=== PATIENT | female | born 1970 | race Caucasian/White ===

== ENCOUNTER 2019-12-05 15:25 | Inpatient (IN) | payer OTHER ==
[~2019-12-05] VITALS: Ht 175.3 cm; Wt 63.4 kg
[2019-12-05 15:50] VITALS: BP 115/70
[2019-12-05] MEDS: IV NORMAL SALINE 1000ML BAG 1,000 ML IV SCH ×2 (17:13→21:47)
[2019-12-05] MEDS: fentaNYL PF VIAL 100 MCG/2 ML VIAL IVP PRN ×3 (17:13→23:45)
[2019-12-05 17:33] LABS: BILIRUBIN,URINE NEGATIVE (NEG); CLARITY,URINE CLEAR; NITRITE,URINE POSITIVE (NEG); PROTEIN,URINE NEGATIVE (NEG-TRACE); UROBILINOGEN,URINE 0.2 mg/dL (0.2 mg/dL)
[2019-12-05 17:41] LABS: BACTERIA,URINE MANY /HPF (0-FEW); COLOR,URINE DK YELLOW; SQUAMOUS EPITHELIAL CELL,UR MANY /LPF
[2019-12-05 17:42] LABS: RBC,URINE RARE /HPF (0-2)
[2019-12-05 17:48] LABS: BASO # 0.1 x10^3/uL (0.0-0.2); BASO % 1 % (0-3); EOS # 0.2 x10^3/uL (0.0-0.7); EOS % 3 % (0-3); HEMATOCRIT 37.2 % (36.0-47.0); HEMOGLOBIN 12.4 g/dL (12.0-15.5); LYMPH # 2.6 x10^3/uL (1.0-4.8); LYMPH % 39 % (24-48); MEAN CORPUSCULAR HEMOGLOBIN 28 pg (25-35); MEAN CORPUSCULAR HGB CONC 33 g/dL (31-37); MEAN CORPUSCULAR VOLUME 83 fL (79-100); MONO # 0.4 x10^3/uL (0.0-1.1); MONO % 6 % (0-9); NEUT # 3.4 x10^3/uL (1.8-7.7); NEUT % 52 % (31-73); PLATELET COUNT 371 x10^3/uL (140-400); RED BLOOD COUNT 4.46 x10^6/uL (3.50-5.40); RED CELL DISTRIBUTION WIDTH 14.9 % (11.5-14.5); WHITE BLOOD COUNT 6.5 x10^3/uL (4.0-11.0)
[2019-12-05 18:05] LABS: CREATININE 0.9 mg/dL (0.6-1.0); GFR 67.1
[2019-12-05 18:10] LABS: ALBUMIN 3.5 g/dL (3.4-5.0); ALBUMIN/GLOBULIN RATIO 0.9 (1.0-1.7); TOTAL BILIRUBIN 0.2 mg/dL (0.2-1.0); TOTAL PROTEIN 7.2 g/dL (6.4-8.2)
[2019-12-05 19:00] VITALS: BP 87/56
[2019-12-05] MEDS ORDERED: OXYM30SP25 NS (19:39)
[2019-12-05] MEDS ORDERED: FLUO20CA16 PO (19:39)
[2019-12-05] MEDS ORDERED: MORP-16 PO (19:39)
[2019-12-05] MEDS ORDERED: ALPR0.5T PO (19:39)
[2019-12-05] MEDS ORDERED: PUMP300C PO (19:39)
[2019-12-05] MEDS ORDERED: PANT40TA77 PO (19:39)
[2019-12-05] MEDS ORDERED: CIPR500T94 PO (19:39)
[2019-12-05] MEDS ORDERED: LEVO50TA5 PO (19:39)
[2019-12-05] MEDS ORDERED: ALPRAZolam 0.5 MG TABLET PO PRN (19:45)
[2019-12-05] MEDS ORDERED: ONDA4TAB12 PO (19:55)
--- NOTE | 2019-12-05 21:03 | HP ---
ADMIT DATE: 12/05/2019 CHIEF COMPLAINT AND HISTORY OF PRESENT ILLNESS: This 49-year-old white female is well known to me in followup in the office. I saw the patient earlier in the week, mainly Tuesday, with right flank pain. She was having also some cystitis symptoms with feeling now up to go off in some discomfort. Urine showed predominantly blood and no convincing evidence of infection suggesting a distal ureteral stone. She was treated with pain medicine, encouraged hydration and straining for stone. She was unable to eat or drink, was vomiting, becoming progressively weaker, unable to get up and go. By the day of admission, it was elected to admit her for hydration as well as pain control for the presumed kidney stone and work this up further. PAST MEDICAL HISTORY: Remarkable for Chiari 1 malformation for which she has headaches. She has had a prior hernia repair. MEDICATIONS: Brought with the patient, listed on the computer and have been addressed. ALLERGIES: SHE IS ALLERGIC TO PENICILLIN. SOCIAL HISTORY: She is nonsmoker, nondrinker, does not abuse drugs. FAMILY HISTORY: Noncontributory. REVIEW OF SYSTEMS: As mentioned above. PHYSICAL EXAMINATION: GENERAL: She is a well-developed, well-nourished white female who appears uncomfortable. VITAL SIGNS: Stable. She is afebrile. HEAD, EYES, EARS, NOSE AND THROAT: Unremarkable. NECK: Supple without adenopathy or thyromegaly. CHEST: Clear to auscultation and percussion. HEART: Regular rate and rhythm without S3, S4 or murmur. ABDOMEN: Soft, nontender, without hepatosplenomegaly or masses. She has exquisite right CVA tenderness. EXTREMITIES: Without cyanosis, clubbing or edema. NEUROLOGIC: She is intact. IMPRESSION: Right flank pain with stone, bleeding, both differential with pyelonephritis also possible. PLAN: Pain control, hydration, CT abdomen and pelvis, stone protocol with plans to follow. LAYO TUCKER MD DR: MARY/nida JOB#: [id number] / [id number]
[2019-12-05] MEDS: MORPHINE ER 30 MG TABLET.ER PO SCH (21:46)
[2019-12-05 23:00] VITALS: BP 89/45
[2019-12-06 03:00] VITALS: BP 111/62
[2019-12-06] MEDS: fentaNYL PF VIAL 100 MCG/2 ML VIAL IVP PRN ×9 (04:24→22:03)
[2019-12-06 07:00] VITALS: BP 99/58
[2019-12-06] MEDS: MORPHINE ER 30 MG TABLET.ER PO SCH ×2 (08:34→22:02)
[2019-12-06] MEDS: FLUoxetine HCL 20 MG CAPSULE PO SCH (08:38)
[2019-12-06] MEDS: PANTOPRAZOLE 40 MG TABLET.DR. PO SCH (08:38)
[2019-12-06] MEDS: LEVOTHYROXINE 50 MCG TABLET PO SCH (08:38)
[2019-12-06] MEDS: IV NORMAL SALINE 1000ML BAG 1,000 ML IV SCH (08:39)
[2019-12-06] MEDS: OXYMETAZOLINE 0.05% NASAL SPRAY 30ML BOTTLE. NS SCH (08:39)
--- NOTE | 2019-12-06 08:46 | PDOC ---
DATE OF SERVICE: DATE: 12/06/19 TIME: 08:44 GENERAL General: vss and afebrile. still miserable with ongoing right flank tenderness. K+ 3.0 and replacement ordered. will add rocephin for nitrite positive urine pending culture. ct abdomen and pelvis for stone this am. VITAL SIGNS/I&O Vital Signs/I&O: Vital Signs Date Time Temp Pulse Resp B/P (MAP) Pulse Ox O2 Delivery O2 Flow Rate FiO2 12/06/19 08:34 Room Air 12/06/19 07:00 97.9 59 18 99/58 (72) 100 97.9 I & O 12/05/19 12/05/19 12/06/19 15:00 23:00 07:00 Intake Total 900 ml 200 ml Balance 900 ml 200 ml ALLERGIES Allergies: Allergies Coded Allergies Type Severity Reaction Last Updated Verified Penicillins Allergy Intermediate 12/06/19 Yes metoclopramide Allergy Intermediate 12/06/19 Yes prochlorperazine Allergy Intermediate 12/06/19 Yes MEDS Medications: Current Medications Medications (Trade) Dose Ordered Sig/Bakari Route PRN Reason Start Time Stop Time Status Last Admin Dose Admin Sodium Chloride 1,000 ml @ 125 mls/hr Q8H IV 12/05/19 16:30 12/06/19 08:39 Fentanyl Citrate (Fentanyl 2ml Vial) 25 mcg PRN Q2HR PRN IVP PAIN 12/05/19 16:30 12/06/19 08:34 Fluoxetine HCl (PROzac) 20 mg DAILYWBKFT PO 12/06/19 08:00 12/06/19 08:38 Levothyroxine Sodium (Synthroid) 50 mcg DAILY06 PO 12/06/19 09:00 12/06/19 08:38 Morphine Sulfate (Ms Contin) 30 mg BID PO 12/05/19 21:00 12/06/19 08:34 Oxymetazoline HCl (Afrin) 1 spray DAILY NS 12/06/19 09:00 12/06/19 08:39 Pantoprazole Sodium (Protonix) 40 mg DAILYAC PO 12/06/19 07:30 12/06/19 08:38 LAB Lab: Laboratory Tests Test 12/05/19 17:20 12/05/19 17:30 Urine Collection Type Unknown Urine Color Dk yellow Urine Clarity Clear Urine pH 6.0 (<5.0-8.0) Urine Specific [place] 1.010 (1.000-1.030) Urine Protein Negative mg/dL (NEG-TRACE) Urine Glucose (UA) Negative mg/dL (NEG) Urine Ketones (Stick) Negative mg/dL (NEG) Urine Blood Negative (NEG) Urine Nitrite Positive (NEG) Urine Bilirubin Negative (NEG) Urine Urobilinogen Dipstick 0.2 mg/dL (0.2 mg/dL) Urine Leukocyte Esterase Small (NEG) Urine RBC Rare /HPF (0-2) Urine WBC 11-20 /HPF (0-4) Urine Squamous Epithelial Cells Many /LPF Urine Bacteria Many /HPF (0-FEW) Urine Mucus Slight /LPF White Blood Count 6.5 x10^3/uL (4.0-11.0) Red Blood Count 4.46 x10^6/uL (3.50-5.40) Hemoglobin 12.4 g/dL (12.0-15.5) Hematocrit 37.2 % (36.0-47.0) Mean Corpuscular Volume 83 fL (79-100) Mean Corpuscular Hemoglobin 28 pg (25-35) Mean Corpuscular Hemoglobin Concent 33 g/dL (31-37) Red Cell Distribution Width 14.9 % (11.5-14.5) H Platelet Count 371 x10^3/uL (140-400) Neutrophils (%) (Auto) 52 % (31-73) Lymphocytes (%) (Auto) 39 % (24-48) Monocytes (%) (Auto) 6 % (0-9) Eosinophils (%) (Auto) 3 % (0-3) Basophils (%) (Auto) 1 % (0-3) Neutrophils # (Auto) 3.4 x10^3/uL (1.8-7.7) Lymphocytes # (Auto) 2.6 x10^3/uL (1.0-4.8) Monocytes # (Auto) 0.4 x10^3/uL (0.0-1.1) Eosinophils # (Auto) 0.2 x10^3/uL (0.0-0.7) Basophils # (Auto) 0.1 x10^3/uL (0.0-0.2) Sodium Level 138 mmol/L (136-145) Potassium Level 3.0 mmol/L (3.5-5.1) L Chloride Level 100 mmol/L (98-107) Carbon Dioxide Level 33 mmol/L (21-32) H Anion Gap 5 (6-14) L Blood Urea Nitrogen 11 mg/dL (7-20) Creatinine 0.9 mg/dL (0.6-1.0) Estimated GFR (Cockcroft-Gault) 67.1 BUN/Creatinine Ratio 12 (6-20) Glucose Level 78 mg/dL (70-99) Calcium Level 9.0 mg/dL (8.5-10.1) Total Bilirubin 0.2 mg/dL (0.2-1.0) Aspartate Amino Transferase (AST) 12 U/L (15-37) L Alanine Aminotransferase (ALT) 16 U/L (14-59) Alkaline Phosphatase 70 U/L (46-116) Total Protein 7.2 g/dL (6.4-8.2) Albumin 3.5 g/dL (3.4-5.0) Albumin/Globulin Ratio 0.9 (1.0-1.7) L Laboratory Tests 12/05/19 17:30 Laboratory Tests 12/05/19 17:30 LAYO TUCKER MD Dec 06, 2019 08:46
--- NOTE | 2019-12-06 08:57 | RAD ---
EXAM: Abdomen and pelvis CT without intravenous contrast. HISTORY: Nephrolithiasis. TECHNIQUE: Computed tomographic images of the abdomen and pelvis were obtained without contrast. Multiplanar reformatting was performed. *One or more of the following individualized dose reduction techniques were utilized for this examination: 1. Automated exposure control. 2. Adjustment of the mA and/or kV according to patient size. 3. Use of iterative reconstruction technique. COMPARISON: None. FINDINGS: Evaluation of the lower thorax demonstrates no infiltrate or pleural effusion. There are implanted breast prostheses. No hepatic lesion is seen. The gallbladder is contracted. The postprandial status the patient. The stomach is distended with recently ingested bolus. The pancreas is unremarkable. The spleen is upper normal in size. The ureteral glands are unremarkable. There is no evidence of nephroureterolithiasis or hydronephrosis. No solid or cystic renal lesion is seen on this noncontrast exam. There is no appendicitis. There is moderate colonic stool. There is no evidence of bowel obstruction. The urinary bladder is unremarkable. The uterus and adnexal regions are unremarkable on this noncontrast exam. There is a small amount of pelvic free fluid, within physiologic limits for a premenopausal female. There is no lymphadenopathy. There is no suspicious osseous lesion. There is degenerative change predominantly at the lumbosacral junction. IMPRESSION: No acute abdominal or pelvic finding. Electronically signed by: Sophia Palma MD (12/06/2019 8:54 AM) [facility]
--- NOTE | 2019-12-06 10:25 | NUR ---
SW following. Discussed with RN, pt from home, room air, regular diet. IV Rocephin. RN advised no SW needs at this time. SW will continue to follow for discharge planning needs.
[2019-12-06] MEDS: cefTRIAXone IV Push 1 GM VIAL. IVP SCH (10:36)
[2019-12-06] MEDS: POTASSIUM CL 40MEQ IN 0.9%NACL 1,000 ML IV SCH ×2 (10:38→19:38)
[2019-12-06 11:10] VITALS: BP 100/69
[2019-12-06] MEDS: ONDANSETRON ODT 4 MG TAB.RAPDIS. PO PRN (13:05)
[2019-12-06 15:01] VITALS: BP 94/54
[2019-12-06 19:00] VITALS: BP 88/45
[2019-12-06 23:02] VITALS: BP 100/39
[2019-12-07] MEDS: fentaNYL PF VIAL 100 MCG/2 ML VIAL IVP PRN ×10 (00:05→23:01)
[2019-12-07] MEDS: POTASSIUM CL 40MEQ IN 0.9%NACL 1,000 ML IV SCH ×3 (03:18→21:31)
[2019-12-07 03:24] VITALS: BP 96/46
[2019-12-07] MEDS: LEVOTHYROXINE 50 MCG TABLET PO SCH (05:10)
[2019-12-07 05:30] LABS: CALCIUM 8.1 mg/dL (8.5-10.1); CREATININE 0.9 mg/dL (0.6-1.0); GFR 67.1
[2019-12-07 07:00] VITALS: BP 145/52
[2019-12-07] MEDS: PANTOPRAZOLE 40 MG TABLET.DR. PO SCH (07:19)
[2019-12-07] MEDS: MORPHINE ER 30 MG TABLET.ER PO SCH ×2 (07:19→20:47)
[2019-12-07] MEDS: FLUoxetine HCL 20 MG CAPSULE PO SCH (07:20)
[2019-12-07] MEDS: OXYMETAZOLINE 0.05% NASAL SPRAY 30ML BOTTLE. NS SCH (09:00)
[2019-12-07] MEDS: diphenhydrAMINE 50 MG/ML VIAL IVP PRN (09:41)
[2019-12-07] MEDS: cefTRIAXone IV Push 1 GM VIAL. IVP SCH (09:42)
--- NOTE | 2019-12-07 10:16 | NUR ---
SW following. Discussed with RN, pt has new consults today. RN advised no SW needs at this time, SW will continue to follow.
[2019-12-07 11:00] VITALS: BP 107/63
--- NOTE | 2019-12-07 11:06 | PDOC ---
Infectious Disease Note Vital Sign Vital Signs Vital Signs Date Time Temp Pulse Resp B/P (MAP) Pulse Ox O2 Delivery O2 Flow Rate FiO2 12/07/19 09:41 20 95 Room Air 12/07/19 07:00 97.9 73 145/52 (83) 97.9 Labs Lab Laboratory Tests Test 12/07/19 04:10 Sodium Level 140 mmol/L (136-145) Potassium Level 4.0 mmol/L (3.5-5.1) Chloride Level 107 mmol/L (98-107) Carbon Dioxide Level 28 mmol/L (21-32) Anion Gap 5 (6-14) Blood Urea Nitrogen 10 mg/dL (7-20) Creatinine 0.9 mg/dL (0.6-1.0) Estimated GFR (Cockcroft-Gault) 67.1 Glucose Level 93 mg/dL (70-99) Calcium Level 8.1 mg/dL (8.5-10.1) Objective Assessment pt seen, consult dictated Plan Plan of Care / LUIS VAZQUEZ MD Dec 07, 2019 11:06
--- NOTE | 2019-12-07 11:41 | CONS ---
DATE OF CONSULTATION: 12/07/2019 REQUESTING PHYSICIAN: Humberto Foss MD REASON FOR CONSULTATION: UTI. HISTORY OF PRESENT ILLNESS: This is a 49-year-old female with a history of recurrent UTI, probably four times this year. She says the last two have been 6 weeks ago, one and last actually Tuesday, she started having some urinary burning and frequency. She called Dr. Foss's office and was put on Cipro. She did have some nausea, may be vomited once or so, then she started having right flank pain, hence she was seen and was admitted. The Cipro that she had taken it did not help much she says. The patient was put on Rocephin and she is feeling better with the flank pain, but she still has some abdominal discomfort and urinary burning. She has had bladder prolapse years ago when she had a bladder tuck surgery done, but it appears to be that it now has been come back. She has had some chills, no fever. Denies any headache, visual symptoms, chest pain, or diarrhea. PAST MEDICAL HISTORY: Positive for recurrent UTI, bladder prolapse in the past, which has been repaired and four UTIs this year. She has had hernia repair done in the past. SOCIAL HISTORY: Negative for smoking, alcohol, or illicit drug use. ALLERGIES: LISTED ALLERGIC TO PENICILLIN, CAUSES HIVES. REVIEW OF SYSTEMS: As per HPI, all other systems reviewed are negative. CURRENT MEDICATIONS: Reviewed. PHYSICAL EXAMINATION: GENERAL: Alert, oriented female, not in distress. VITAL SIGNS: Stable, afebrile. HEENT: NAD. NECK: Supple, no JVP, no lymphadenopathy. LUNGS: Clear. HEART: S1, S2 regular. ABDOMEN: Benign. EXTREMITIES: No edema, cyanosis. SKIN: Unremarkable. There is no CVA tenderness. LABORATORY DATA: White count is normal. BUN and creatinine is normal. Urinalysis showed 11-20 wbc's. Urine culture is pending. I checked with the lab. CT of the abdomen and pelvis was negative for any kidney stones or pyelonephritis. IMPRESSION: 1. Urinary tract infection. 2. Bladder prolapse. 3. May have a yeast infection, also possible since she had four urinary tract infections and recurrent antibiotics. She has had that before also. RECOMMENDATIONS: Would continue Rocephin, add Diflucan and Pyridium. The patient does need a Urology. Unfortunately, we do not have one. I do not know whether MOTOR ELECT[employer]ICIAN might be able to help. Thank you very much, Dr. Foss, for giving me the opportunity to participate in this patient's care. LUIS VAZQUEZ MD DR: MELL/nida JOB#: [id number] / [id number]
[2019-12-07] MEDS: FLUCONAZOLE 100 MG TABLET. PO SCH (12:51)
[2019-12-07] MEDS: PHENAZOPYRIDINE 200 MG TABLET. PO PRN (12:59)
[2019-12-07] MEDS: LACTOBACILLUS RHAMNOSUS GG 1 CAPSULE. PO SCH ×2 (12:59→20:46)
[2019-12-07] MEDS: ONDANSETRON ODT 4 MG TAB.RAPDIS. PO PRN (12:59)
--- NOTE | 2019-12-07 13:42 | PDOC2 ---
CONSULT Date of Consult Date of Consult DATE: 12/07/19 TIME: 13:40 Reason for Consult Reason for Consult: Prolapse History of Present Illness Reason for Visit: 49y admitted for right flanks pain and cystitis. The pt was worked up for pyelonephritis vs nephrolithiasis. The pt states that the pain began over a wk ago. The pt states that first notice her bladder prolapse after her delivery about 5yrs ago. She had a complicated surgery where she pushed ~4hrs and also had a shoulder dystocia. She states that she was underwent a repair of her prolapse. Discussed the sites of pelvic organ prolapse (anterior, posterior, and apical compartment). She believes at that time it was anterior and states that her bladder was tacked up. Recently she feels that the prolapse has returned. At times when she voids she feels a lot of pressure and has to valsva to relieve the pressure. She feels like the prolapse is again in the anterior compartment. She wonders if the prolapse could be contributing to her current symptoms. Explained that it is not likely and typically the prolapse would have to be a procidentia (compartments through the vaginal introitus) for a pt to develop flank pain (secondary to ureteral obstruction. Potentially the prolapse may "kink" the urethra, thereby resulting in symptoms of obstructed voiding, such as a slow urine stream, the need to change position or manually reduce the prolapse to urinate, a sensation of incomplete emptying and, in rare cases, complete urinary retention. Also pt may develop stress incontinence or overactive bladder symptoms. Based on her current symptoms, the pt was told that it was not likely that prolapse is the cause. PMH: Hypothyroidism, Chiari 1 malformation PSH: Hernia repair, breast, D&C x 2 OBHx: recurrent loss (2/2 to AMA), TSVD x 1 [employer] Examiner: LMP ~2wks ago Not contraception, h/o Norplant and OCPs 17yo / regular SH: no tob, no EtOH FH: CAD Current Medications Current Medications Current Medications Sodium Chloride 1,000 ml @ 125 mls/hr Q8H IV Last administered on 12/06/19at 08:39; Start 12/05/19 at 16:30; Stop 12/06/19 at 09:04; Status DC Fentanyl Citrate (Fentanyl 2ml Vial) 25 mcg PRN Q2HR PRN IVP PAIN Last administered on 12/06/19 17:26; Start 12/05/19 at 16:30; Stop 12/06/19 at 19:19; Status DC Alprazolam (Xanax) 0.5 mg PRN DAILY PRN PO ANXIETY / AGITATION; Start 12/05/19 at 19:45 Fluoxetine HCl (PROzac) 20 mg DAILYWBKFT PO Last administered on 12/07/19 07:20; Start 12/06/19 at 08:00 Levothyroxine Sodium (Synthroid) 50 mcg DAILY06 PO Last administered on 12/07/19 05:10; Start 12/06/19 at 09:00 Morphine Sulfate (Ms Contin) 30 mg BID PO Last administered on 12/07/19 07:19; Start 12/05/19 at 21:00 Oxymetazoline HCl (Afrin) 1 spray DAILY NS Last administered on 12/06/19 08:39; Start 12/06/19 at 09:00 Pantoprazole Sodium (Protonix) 40 mg DAILYAC PO Last administered on 12/07/19 07:19; Start 12/06/19 at 07:30 Ondansetron HCl (Zofran Odt) 4 mg PRN Q6HRS PRN PO NAUSEA/VOMITING Last administered on 12/07/19 12:59; Start 12/05/19 at 20:00 Ceftriaxone Sodium (Rocephin) 1 gm Q24H IVP Last administered on 12/07/19 09:42; Start 12/06/19 at 10:00 Potassium Chloride/Sodium Chloride 1,000 ml @ 125 mls/hr Q8H IV Last administered on 12/07/19at 07:25; Start 12/06/19 at 10:00 Fentanyl Citrate (Fentanyl 2ml Vial) 50 mcg PRN Q2HR PRN IVP MODERATE TO SEVERE PAIN Last administered on 12/07/19 12:52; Start 12/06/19 at 19:30 Diphenhydramine HCl (Benadryl) 50 mg PRN Q6HRS PRN IVP ITCHING Last administered on 12/07/19 09:41; Start 12/06/19 at 19:30 Fluconazole (Diflucan) 200 mg DAILY PO Last administered on 12/07/19at 12:51; Start 12/07/19 at 12:00 Phenazopyridine HCl (Pyridium) 200 mg PRN TID PRN PO URINARY PAIN Last administered on 12/07/19at 12:59; Start 12/07/19 at 11:15 Lactobacillus Rhamnosus (Culturelle) 1 cap BID PO Last administered on 12/07/19at 12:59; Start 12/07/19 at 13:00 Active Scripts Active Reported Ondansetron Odt (Ondansetron) 4 Mg Tab.rapdis 1 Tab PO PRN Q6-8HRS Pantoprazole Sodium (Pantoprazole Sodium) 40 Mg Tablet.dr 40 Mg PO DAILYAC Afrin (Oxymetazoline Hcl) 30 Ml [place] 30 Ml NS DAILY Cipro (Ciprofloxacin Hcl) 500 Mg Tablet 1 Tab PO BID 7 Days Azo Bladder Control Capsule (Pumpkin Seed Extract/Soy Germ) 300 Mg Capsule 1 Cap PO BID 30 Days Morphine Sulfate Er (Morphine Sulfate) 30 Mg Tablet.er 1 Tab PO BID Prozac (Fluoxetine Hcl) 20 Mg Capsule 1 Cap PO DAILYWBKFT Xanax (Alprazolam) 0.5 Mg Tablet 1 Tab PO PRN DAILY PRN Levothyroxine Sodium 50 Mcg Tablet 1 Tab PO DAILY Allergies Allergies: Coded Allergies: Penicillins (Verified Allergy, Intermediate, 12/06/19) metoclopramide (Verified Allergy, Intermediate, 12/06/19) prochlorperazine (Verified Allergy, Intermediate, 12/06/19) Physical Exam General: Alert, Oriented X3, Cooperative, No acute distress Lungs: Clear to auscultation, Normal air movement Heart: Regular rate, Normal S1, Normal S2, No murmurs Abdomen: Normal bowel sounds, Soft, No tenderness, No hepatosplenomegaly, No masses Extremities: No clubbing, No cyanosis, No edema, Normal pulses, No tenderness/swelling Psych/Mental Status: Mental status NL, Mood NL Vitals VITALS Vital Signs Date Time Temp Pulse Resp B/P (MAP) Pulse Ox O2 Delivery O2 Flow Rate FiO2 12/07/19 12:52 18 98 Room Air 12/07/19 11:00 98.4 67 107/63 (78) 98.4 Labs Labs Laboratory Tests Test 12/05/19 17:20 12/05/19 17:30 12/07/19 04:10 Urine Collection Type Unknown Urine Color Dk yellow Urine Clarity Clear Urine pH 6.0 (<5.0-8.0) Urine Specific [place] 1.010 (1.000-1.030) Urine Protein Negative mg/dL (NEG-TRACE) Urine Glucose (UA) Negative mg/dL (NEG) Urine Ketones (Stick) Negative mg/dL (NEG) Urine Blood Negative (NEG) Urine Nitrite Positive (NEG) Urine Bilirubin Negative (NEG) Urine Urobilinogen Dipstick 0.2 mg/dL (0.2 mg/dL) Urine Leukocyte Esterase Small (NEG) Urine RBC Rare /HPF (0-2) Urine WBC 11-20 /HPF (0-4) Urine Squamous Epithelial Cells Many /LPF Urine Bacteria Many /HPF (0-FEW) Urine Mucus Slight /LPF White Blood Count 6.5 x10^3/uL (4.0-11.0) Red Blood Count 4.46 x10^6/uL (3.50-5.40) Hemoglobin 12.4 g/dL (12.0-15.5) Hematocrit 37.2 % (36.0-47.0) Mean Corpuscular Volume 83 fL (79-100) Mean Corpuscular Hemoglobin 28 pg (25-35) Mean Corpuscular Hemoglobin Concent 33 g/dL (31-37) Red Cell Distribution Width 14.9 % (11.5-14.5) Platelet Count 371 x10^3/uL (140-400) Neutrophils (%) (Auto) 52 % (31-73) Lymphocytes (%) (Auto) 39 % (24-48) Monocytes (%) (Auto) 6 % (0-9) Eosinophils (%) (Auto) 3 % (0-3) Basophils (%) (Auto) 1 % (0-3) Neutrophils # (Auto) 3.4 x10^3/uL (1.8-7.7) Lymphocytes # (Auto) 2.6 x10^3/uL (1.0-4.8) Monocytes # (Auto) 0.4 x10^3/uL (0.0-1.1) Eosinophils # (Auto) 0.2 x10^3/uL (0.0-0.7) Basophils # (Auto) 0.1 x10^3/uL (0.0-0.2) Sodium Level 138 mmol/L (136-145) 140 mmol/L (136-145) Potassium Level 3.0 mmol/L (3.5-5.1) 4.0 mmol/L (3.5-5.1) Chloride Level 100 mmol/L (98-107) 107 mmol/L (98-107) Carbon Dioxide Level 33 mmol/L (21-32) 28 mmol/L (21-32) Anion Gap 5 (6-14) 5 (6-14) Blood Urea Nitrogen 11 mg/dL (7-20) 10 mg/dL (7-20) Creatinine 0.9 mg/dL (0.6-1.0) 0.9 mg/dL (0.6-1.0) Estimated GFR (Cockcroft-Gault) 67.1 67.1 BUN/Creatinine Ratio 12 (6-20) Glucose Level 78 mg/dL (70-99) 93 mg/dL (70-99) Calcium Level 9.0 mg/dL (8.5-10.1) 8.1 mg/dL (8.5-10.1) Total Bilirubin 0.2 mg/dL (0.2-1.0) Aspartate Amino Transf (AST/SGOT) 12 U/L (15-37) Alanine Aminotransferase (ALT/SGPT) 16 U/L (14-59) Alkaline Phosphatase 70 U/L (46-116) Total Protein 7.2 g/dL (6.4-8.2) Albumin 3.5 g/dL (3.4-5.0) Albumin/Globulin Ratio 0.9 (1.0-1.7) Laboratory Tests Test 12/07/19 04:10 Sodium Level 140 mmol/L (136-145) Potassium Level 4.0 mmol/L (3.5-5.1) Chloride Level 107 mmol/L (98-107) Carbon Dioxide Level 28 mmol/L (21-32) Anion Gap 5 (6-14) Blood Urea Nitrogen 10 mg/dL (7-20) Creatinine 0.9 mg/dL (0.6-1.0) Estimated GFR (Cockcroft-Gault) 67.1 Glucose Level 93 mg/dL (70-99) Calcium Level 8.1 mg/dL (8.5-10.1) Assessment/Plan Assessment/Plan Assessment: 49y admitted for right flanks pain and cystitis Recommendations: 1.) Pelvic organ prolapse Discussed defer exam until outpt eval due to it will not likely change the course of management. The pt was informed that her flank pain was likely unrelated to the prolapse. CT without any abnml flow seen in ureters. Discussed how a repair of a repair is often complicated and better success rates are found if the procedures are done by Urogyn. The pt states that the orginal repair was by a Urogyn who had moved away. The pt one she had seen after they were not comfortable with. Informed the pt that I would leave the contact of the Urogyn that I typically refer to in my note: Dr. Garcia Nost i [phone]. 2.) Flank pain cystitis vs pyelonephritis, txed per ID, recommended Rocephin, add Diflucan and Pyridium 3.) Contraception none 4.) Hypothyroid per primary 5.) Chiari 1 malformation per primary Thank you very much, Dr. Foss, for giving me the opportunity to participate in this patient's care. ROBERTO PEACOCK MD Dec 07, 2019 13:42
--- NOTE | 2019-12-07 14:01 | PDOC ---
DATE OF SERVICE: DATE: 12/07/19 TIME: 13:59 GENERAL General: vss and afebrile. awake and alert. flank tenderness slightly decreased and eating a few crackers after no food intake for several days vaginal prolapse and will ask staking press operator for opinion and get ID opinion of antibiotics for presumed pyelonephritis since no stone found on ct. on cipro prior to admit so must be resistant organism. VITAL SIGNS/I&O Vital Signs/I&O: Vital Signs Date Time Temp Pulse Resp B/P (MAP) Pulse Ox O2 Delivery O2 Flow Rate FiO2 12/07/19 12:52 18 98 Room Air 12/07/19 11:00 98.4 67 107/63 (78) 98.4 I & O 12/06/19 12/06/19 12/07/19 15:00 23:00 07:00 Intake Total 680 ml 360 ml 120 ml Output Total 1000 ml 850 ml Balance -320 ml -490 ml 120 ml ALLERGIES Allergies: Allergies Coded Allergies Type Severity Reaction Last Updated Verified Penicillins Allergy Intermediate 12/06/19 Yes metoclopramide Allergy Intermediate 12/06/19 Yes prochlorperazine Allergy Intermediate 12/06/19 Yes MEDS Medications: Current Medications Medications (Trade) Dose Ordered Sig/Bakari Route PRN Reason Start Time Stop Time Status Last Admin Dose Admin Fentanyl Citrate (Fentanyl 2ml Vial) 50 mcg PRN Q2HR PRN IVP MODERATE TO SEVERE PAIN 12/06/19 19:30 12/07/19 12:52 Diphenhydramine HCl (Benadryl) 50 mg PRN Q6HRS PRN IVP ITCHING 12/06/19 19:30 12/07/19 09:41 Fluconazole (Diflucan) 200 mg DAILY PO 12/07/19 12:00 12/07/19 12:51 Phenazopyridine HCl (Pyridium) 200 mg PRN TID PRN PO URINARY PAIN 12/07/19 11:15 12/07/19 12:59 Lactobacillus Rhamnosus (Culturelle) 1 cap BID PO 12/07/19 13:00 12/07/19 12:59 LAB Lab: Laboratory Tests Test 12/07/19 04:10 Sodium Level 140 mmol/L (136-145) Potassium Level 4.0 mmol/L (3.5-5.1) Chloride Level 107 mmol/L (98-107) Carbon Dioxide Level 28 mmol/L (21-32) Anion Gap 5 (6-14) L Blood Urea Nitrogen 10 mg/dL (7-20) Creatinine 0.9 mg/dL (0.6-1.0) Estimated GFR (Cockcroft-Gault) 67.1 Glucose Level 93 mg/dL (70-99) Calcium Level 8.1 mg/dL (8.5-10.1) L Laboratory Tests 12/07/19 04:10 Justifications for Admission Other Justification LAYO TUCKER MD Dec 07, 2019 14:01
[2019-12-07 15:00] VITALS: BP 103/58
[2019-12-07 19:00] VITALS: BP 93/52
[2019-12-07 23:00] VITALS: BP 99/50
[2019-12-08] MEDS: POTASSIUM CL 40MEQ IN 0.9%NACL 1,000 ML IV SCH ×2 (02:00→10:39)
[2019-12-08 03:00] VITALS: BP 92/50
[2019-12-08] MEDS: fentaNYL PF VIAL 100 MCG/2 ML VIAL IVP PRN ×8 (05:11→20:55)
[2019-12-08] MEDS: PANTOPRAZOLE 40 MG TABLET.DR. PO SCH (06:29)
[2019-12-08] MEDS: LEVOTHYROXINE 50 MCG TABLET PO SCH (06:29)
--- NOTE | 2019-12-08 07:00 | PDOC ---
Infectious Disease Note Subjective Subjective Patient states she is feeling okay ROS ROS No nausea vomiting diarrhea or fever Vital Sign Vital Signs Vital Signs Date Time Temp Pulse Resp B/P (MAP) Pulse Ox O2 Delivery O2 Flow Rate FiO2 12/08/19 05:41 18 100 Room Air 12/08/19 03:00 98.3 58 92/50 (64) 98.3 Physical Exam PHYSICAL EXAM GENERAL: Alert, oriented female, not in distress. VITAL SIGNS: Stable, afebrile. HEENT: NAD. NECK: Supple, no JVP, no lymphadenopathy. LUNGS: Clear. HEART: S1, S2 regular. ABDOMEN: Benign. EXTREMITIES: No edema, cyanosis. SKIN: Unremarkable. There is no CVA tenderness. Labs Micro Microbiology 12/05/19 Urine Culture -E. coli Objective Assessment IMPRESSION: 1. Urinary tract infection. 2. Bladder prolapse. 3. May have a yeast infection, also possible since she had four urinary tract infections and recurrent antibiotics. She has had that before also. Plan Plan of Care Continue current antibiotics and antifungal Supportive care LUIS VAZQUEZ MD Dec 08, 2019 07:00
[2019-12-08 07:59] VITALS: BP 90/50
[2019-12-08] MEDS: FLUCONAZOLE 100 MG TABLET. PO SCH (08:42)
[2019-12-08] MEDS: MORPHINE ER 30 MG TABLET.ER PO SCH ×2 (08:42→20:44)
[2019-12-08] MEDS: FLUoxetine HCL 20 MG CAPSULE PO SCH (08:42)
[2019-12-08] MEDS: LACTOBACILLUS RHAMNOSUS GG 1 CAPSULE. PO SCH ×2 (08:42→20:43)
[2019-12-08] MEDS: OXYMETAZOLINE 0.05% NASAL SPRAY 30ML BOTTLE. NS SCH (09:00)
--- NOTE | 2019-12-08 09:06 | PDOC ---
DATE OF SERVICE: DATE: 12/08/19 TIME: 09:04 GENERAL General: vss and afebrile. awake and alert. less flank pain today for sure. eating a little. chest clear, heart regular, abdomen benign. urine growing out E. coli and will await final there with plans to follow. VITAL SIGNS/I&O Vital Signs/I&O: Vital Signs Date Time Temp Pulse Resp B/P (MAP) Pulse Ox O2 Delivery O2 Flow Rate FiO2 12/08/19 08:42 Room Air 12/08/19 07:59 98.0 60 18 90/50 (63) 98 98.0 I & O 12/07/19 12/07/19 12/08/19 15:00 23:00 07:00 Intake Total 240 ml Balance 240 ml ALLERGIES Allergies: Allergies Coded Allergies Type Severity Reaction Last Updated Verified Penicillins Allergy Intermediate 12/06/19 Yes metoclopramide Allergy Intermediate 12/06/19 Yes prochlorperazine Allergy Intermediate 12/06/19 Yes MEDS Medications: Current Medications Medications (Trade) Dose Ordered Sig/Bakari Route PRN Reason Start Time Stop Time Status Last Admin Dose Admin Fluconazole (Diflucan) 200 mg DAILY PO 12/07/19 12:00 12/08/19 08:42 Phenazopyridine HCl (Pyridium) 200 mg PRN TID PRN PO URINARY PAIN 12/07/19 11:15 12/07/19 12:59 Lactobacillus Rhamnosus (Culturelle) 1 cap BID PO 12/07/19 13:00 12/08/19 08:42 Justifications for Admission Other Justification APPL,LAYO Quintanilla MD Dec 08, 2019 09:05
[2019-12-08] MEDS: cefTRIAXone IV Push 1 GM VIAL. IVP SCH (09:39)
[2019-12-08] MEDS: diphenhydrAMINE 50 MG/ML VIAL IVP PRN (09:40)
[2019-12-08 09:41] LABS: CALCIUM 7.9 mg/dL (8.5-10.1); GFR 59.4; POTASSIUM 4.3 mmol/L (3.5-5.1)
[2019-12-08 11:59] VITALS: BP 91/50
--- NOTE | 2019-12-08 15:31 | NUR ---
Dr. Foss notified of the potassium level on patient because pharmacy expressed concern. Dr. Foss did not want to make any changes.
[2019-12-08 15:59] VITALS: BP 96/49
[2019-12-08 19:00] VITALS: BP 89/44
[2019-12-08] MEDS: PHENAZOPYRIDINE 200 MG TABLET. PO PRN (20:43)
[2019-12-08 23:00] VITALS: BP 91/52
[2019-12-09] MEDS: fentaNYL PF VIAL 100 MCG/2 ML VIAL IVP PRN ×9 (00:16→23:56)
[2019-12-09] MEDS: POTASSIUM CL 40MEQ IN 0.9%NACL 1,000 ML IV SCH ×3 (02:00→10:00)
[2019-12-09 03:00] VITALS: BP 91/52
[2019-12-09] MEDS: PANTOPRAZOLE 40 MG TABLET.DR. PO SCH (06:12)
[2019-12-09] MEDS: LEVOTHYROXINE 50 MCG TABLET PO SCH (06:12)
[2019-12-09] MEDS: PHENAZOPYRIDINE 200 MG TABLET. PO PRN ×2 (06:31→23:58)
[2019-12-09 07:59] VITALS: BP 104/63
[2019-12-09] MEDS: FLUoxetine HCL 20 MG CAPSULE PO SCH (08:46)
[2019-12-09] MEDS: FLUCONAZOLE 100 MG TABLET. PO SCH (08:46)
[2019-12-09] MEDS: LACTOBACILLUS RHAMNOSUS GG 1 CAPSULE. PO SCH ×2 (08:46→21:12)
[2019-12-09] MEDS: MORPHINE ER 30 MG TABLET.ER PO SCH ×2 (08:47→21:13)
[2019-12-09] MEDS: OXYMETAZOLINE 0.05% NASAL SPRAY 30ML BOTTLE. NS SCH (08:50)
--- NOTE | 2019-12-09 09:39 | PDOC ---
Infectious Disease Note Subjective Subjective Patient states she is feeling okay ROS ROS No nausea vomiting diarrhea or fever Vital Sign Vital Signs Vital Signs Date Time Temp Pulse Resp B/P (MAP) Pulse Ox O2 Delivery O2 Flow Rate FiO2 12/09/19 08:47 Room Air 12/09/19 07:59 98.0 57 18 104/63 (77) 97 98.0 Physical Exam PHYSICAL EXAM GENERAL: Alert, oriented female, not in distress. VITAL SIGNS: Stable, afebrile. HEENT: NAD. NECK: Supple, no JVP, no lymphadenopathy. LUNGS: Clear. HEART: S1, S2 regular. ABDOMEN: Benign. EXTREMITIES: No edema, cyanosis. SKIN: Unremarkable. There is no CVA tenderness. Labs Micro Microbiology 12/05/19 Urine Culture -E. coli GREATER THAN 100,000 CFU/ML GRAM NEGATIVE RODS on 12/07/19 at 0931 FINAL ID= [ESCHERICHIA COLI] Testing Performed by: [place] [address] For Inquires, the Physician may contact the Microbiology department at [phone] ESCHERICHIA COLI ANTIMICROBIAL SUSCEPTIBILITY Final Comment NEG MI 56 ESCHERICHIA COLI ANTIBIOTIC RESULT INTERPRETATION AMPICILLIN/SULBACTAM <=4/2 S AMIKACIN <=16 S AMPICILLIN <=8 S AMOXICILLIN/K CLAVULANATE <=8/4 S AZTREONAM <=4 S CEFTRIAXONE <=1 S CEFTAZIDIME <=1 S CEFOTAXIME <=2 S CEFOXITIN <=8 S CIPROFLOXACIN >2 R CEFEPIME <=2 S CEFUROXIME <=4 S CEFTAZIDIME/AVIBACTAM <=4 S ERTAPENEM <=0.5 S NITROFURANTOIN <=32 S GENTAMICIN <=2 S LEVOFLOXACIN >4 R MEROPENEM <=1 S PIPERACILLIN/TAZOBACTAM <=8 S TRIMETHOPRIM/SULFAMETHOXAZOLE <=0.5/9.5 S TETRACYCLINE <=4 S TOBRAMYCIN >8 R Unless otherwise specified, Testing Performed by: CONTINUED ON NEXT PAGE Objective Assessment IMPRESSION: 1. Urinary tract infection. 2. Bladder prolapse. 3. May have a yeast infection, also possible since she had four urinary tract infections and recurrent antibiotics. She has had that before also. Plan Plan of Care Continue current antibiotics and antifungal Supportive care Rocephin can be changed to cefdinir for discharge LUIS VAZQUEZ MD Dec 09, 2019 09:39
[2019-12-09] MEDS: cefTRIAXone IV Push 1 GM VIAL. IVP SCH (10:03)
[2019-12-09] MEDS: diphenhydrAMINE 50 MG/ML VIAL IVP PRN (10:03)
--- NOTE | 2019-12-09 10:54 | PDOC ---
DATE OF SERVICE: DATE: 12/09/19 TIME: 10:53 GENERAL General: vss and afebrile. laying in bed. pain has decreased but she is unsure if she could stand it at home on regular meds. exam stable with daily decrease in right flank tenderness. will dc ivf's today and recheck lytes am with dc tomorrow. VITAL SIGNS/I&O Vital Signs/I&O: Vital Signs Date Time Temp Pulse Resp B/P (MAP) Pulse Ox O2 Delivery O2 Flow Rate FiO2 12/09/19 10:02 Room Air 12/09/19 07:59 98.0 57 18 104/63 (77) 97 98.0 I & O 12/08/19 12/08/19 12/09/19 15:00 23:00 07:00 Intake Total 320 ml 360 ml Balance 320 ml 360 ml ALLERGIES Allergies: Allergies Coded Allergies Type Severity Reaction Last Updated Verified Penicillins Allergy Intermediate 12/06/19 Yes metoclopramide Allergy Intermediate 12/06/19 Yes prochlorperazine Allergy Intermediate 12/06/19 Yes Justifications for Admission Other Justification APPL,LAYO Quintanilla MD Dec 09, 2019 10:54
[2019-12-09 11:31] LABS: CREATININE 0.9 mg/dL (0.6-1.0); GFR 67.1; POTASSIUM 4.8 mmol/L (3.5-5.1)
[2019-12-09 11:59] VITALS: BP 102/57
[2019-12-09 15:59] VITALS: BP 114/53
[2019-12-09 19:00] VITALS: BP 91/52
[2019-12-09] MEDS: CEFDINIR 300 MG CAPSULE PO SCH (21:11)
[2019-12-09 23:00] VITALS: BP 106/61
[2019-12-10] MEDS: fentaNYL PF VIAL 100 MCG/2 ML VIAL IVP PRN ×2 (02:46→06:04)
[2019-12-10 03:00] VITALS: BP 100/58
[2019-12-10] MEDS: LEVOTHYROXINE 50 MCG TABLET PO SCH (06:05)
[2019-12-10] MEDS: PANTOPRAZOLE 40 MG TABLET.DR. PO SCH (06:05)
[2019-12-10 07:23] LABS: CALCIUM 8.1 mg/dL (8.5-10.1); CREATININE 0.8 mg/dL (0.6-1.0); GFR 76.9; POTASSIUM 4.1 mmol/L (3.5-5.1)
[2019-12-10 07:43] VITALS: BP 109/65
[2019-12-10] MEDS ORDERED: CEFD300C PO (07:47)
--- NOTE | 2019-12-10 07:58 | DS ---
DATE OF DISCHARGE: 12/10/2019 PRIMARY DIAGNOSIS: Pyelonephritis. ADDITIONAL DIAGNOSES: Anorexia, dehydration, hypokalemia, Chiari I malformation, right flank pain. CHIEF COMPLAINT AND HISTORY OF PRESENT ILLNESS: This 49-year-old white female admitted after failed outpatient treatment of right flank pain with Cipro with initial UA showing a fair amount of blood and felt to be a stone. Culture was somehow never done. She had been on Cipro, getting progressively worse, became anorexic, nausea and vomiting, unable to keep things down, presented more ill and was admitted with initial hypokalemia, clinically dehydrated with ongoing flank pain. SUMMARY OF STAY: The patient was admitted. CT abdomen and pelvis with contrast did not show a stone. She was covered with Rocephin with was a slow, but steady improvement throughout the stay. She did culture out E. coli in her urine, resistant to fluoroquinolones. She was eating and drinking. By the time of discharge was still feeling quite fatigued, still complained of some right flank pain, but this was much improved over admission and she was felt ready for dismissal. DISPOSITION: The patient is discharged to home. DIET: Regular diet. ACTIVITY: As tolerated, office in 1 week. DISCHARGE MEDICATIONS: Include her regular home meds plus Omnicef 300 b.i.d. for the next week. LAYO TUCKER MD DR: MARY/nida JOB#: [id number] / [id number]
--- NOTE | 2019-12-10 08:59 | PDOC ---
Infectious Disease Note Subjective: Subjective Patient states she is feeling okay some nausea some headache which is chronic Vital Signs: Vital Signs Vital Signs Date Time Temp Pulse Resp B/P (MAP) Pulse Ox O2 Delivery O2 Flow Rate FiO2 12/10/19 07:43 97.8 71 18 109/65 (80) 97 Room Air 97.8 Physical Exam: PHYSICAL EXAM GENERAL: Alert, oriented female, not in distress. HEENT: NAD. NECK: Supple, no JVP, no lymphadenopathy. LUNGS: Clear. HEART: S1, S2 regular. ABDOMEN: Benign. EXTREMITIES: No edema, cyanosis. SKIN: Unremarkable. There is no CVA tenderness. SURGICAL FIRST ASSISTANT nonfocal Medications: Inpatient Meds: Current Medications Medications (Trade) Dose Ordered Sig/Bakari Start Time Stop Time Status Last Admin Dose Admin Alprazolam (Xanax) 0.5 mg PRN DAILY PRN 12/05/19 19:45 Cefdinir (Omnicef) 300 mg BID 12/09/19 21:00 12/09/19 21:11 300 MG Ceftriaxone Sodium (Rocephin) 1 gm Q24H 12/06/19 10:00 12/09/19 15:00 DC 12/09/19 10:03 1 GM Diphenhydramine HCl (Benadryl) 50 mg PRN Q6HRS PRN 12/06/19 19:30 12/09/19 10:03 50 MG Fentanyl Citrate (Fentanyl 2ml Vial) 50 mcg PRN Q2HR PRN 12/06/19 19:30 12/10/19 06:04 50 MCG Fluconazole (Diflucan) 200 mg DAILY 12/07/19 12:00 12/09/19 08:46 200 MG Fluoxetine HCl (PROzac) 20 mg DAILYWBKFT 12/06/19 08:00 12/09/19 08:46 20 MG Lactobacillus Rhamnosus (Culturelle) 1 cap BID 12/07/19 13:00 12/09/19 21:12 1 CAP Levothyroxine Sodium (Synthroid) 50 mcg DAILY06 12/06/19 09:00 12/10/19 06:05 50 MCG Morphine Sulfate (Ms Contin) 30 mg BID 12/05/19 21:00 12/09/19 21:13 30 MG Ondansetron HCl (Zofran Odt) 4 mg PRN Q6HRS PRN 12/05/19 20:00 12/07/19 12:59 4 MG Oxymetazoline HCl (Afrin) 1 spray DAILY 12/06/19 09:00 12/06/19 08:39 1 SPRAY Pantoprazole Sodium (Protonix) 40 mg DAILYAC 12/06/19 07:30 12/10/19 06:05 40 MG Phenazopyridine HCl (Pyridium) 200 mg PRN TID PRN 12/07/19 11:15 12/09/19 23:58 200 MG Potassium Chloride/Sodium Chloride 1,000 ml @ 125 mls/hr Q8H 12/06/19 10:00 12/09/19 10:53 DC 12/09/19 02:02 125 MLS/HR Sodium Chloride 1,000 ml @ 125 mls/hr Q8H 12/05/19 16:30 12/06/19 09:04 DC 12/06/19 08:39 125 MLS/HR Labs: Lab Laboratory Tests Test 12/09/19 10:55 12/10/19 05:45 Sodium Level 140 mmol/L (136-145) 139 mmol/L (136-145) Potassium Level 4.8 mmol/L (3.5-5.1) 4.1 mmol/L (3.5-5.1) Chloride Level 107 mmol/L (98-107) 104 mmol/L (98-107) Carbon Dioxide Level 28 mmol/L (21-32) 29 mmol/L (21-32) Anion Gap 5 (6-14) 6 (6-14) Blood Urea Nitrogen 10 mg/dL (7-20) 13 mg/dL (7-20) Creatinine 0.9 mg/dL (0.6-1.0) 0.8 mg/dL (0.6-1.0) Estimated GFR (Cockcroft-Gault) 67.1 76.9 Glucose Level 59 mg/dL (70-99) 89 mg/dL (70-99) Calcium Level 8.0 mg/dL (8.5-10.1) 8.1 mg/dL (8.5-10.1) Objective: Assessment: 1. Urinary tract infection. 2. Bladder prolapse. 3. May have a yeast infection, also possible since she had four urinary tract infections and recurrent antibiotics. She has had that before also. Plan: Plan of Care Pt is ready for dc today cefdinir and fluconazole for discharge LETICIA VAZQUEZ MD Dec 10, 2019 08:59
[2019-12-10] MEDS: OXYMETAZOLINE 0.05% NASAL SPRAY 30ML BOTTLE. NS SCH (09:00)
[2019-12-10] MEDS: LACTOBACILLUS RHAMNOSUS GG 1 CAPSULE. PO SCH (09:21)
[2019-12-10] MEDS: FLUoxetine HCL 20 MG CAPSULE PO SCH (09:21)
[2019-12-10] MEDS: PHENAZOPYRIDINE 200 MG TABLET. PO PRN (09:21)
[2019-12-10] MEDS: CEFDINIR 300 MG CAPSULE PO SCH (09:21)
[2019-12-10] MEDS: FLUCONAZOLE 100 MG TABLET. PO SCH (09:22)
[2019-12-10] MEDS: MORPHINE ER 30 MG TABLET.ER PO SCH (09:22)
--- NOTE | 2019-12-10 10:33 | NUR ---
SW following. Discussed with RN. Discharge order for home with self care. No further SW needs.
[2019-12-10 11:24] VITALS: BP 106/57
[2019-12-10 15:37] VITALS: BP 112/72
== END 2019-12-10 16:00 | disposition home or self-care (01) | DRG 690 ==
LOC: 5 NORTH 15:25
PROVIDERS: ADMIT Family Medicine; ATTEND Family Medicine
DX: N13.6 Pyonephrosis (principal); N20.9 Urinary calculus, unspecified; E03.9 Hypothyroidism, unspecified; E86.0 Dehydration; N81.3 Complete uterovaginal prolapse; N96 Recurrent pregnancy loss; Z82.49 Family history of ischemic heart disease and other diseases of the circulatory system; Z87.440 Personal history of urinary (tract) infections; Z88.0 Allergy status to penicillin; Z88.8 Allergy status to other drugs, medicaments and biological substances; R63.0 Anorexia; Z68.20 Body mass index [BMI] 20.0-20.9, adult; E87.6 Hypokalemia; B96.20 Unspecified Escherichia coli [E. coli] as the cause of diseases classified elsewhere
CPT/HCPCS: 36415; 74176; 80048; 80053; 81001; 85025; 87077; 87086; 87186; J0696; J1200; J3010; J3480; J7030; G0378

== ENCOUNTER 2019-12-14 09:30 | Inpatient (IN) | payer OTHER ==
[~2019-12-14] VITALS: Ht 175.3 cm; Wt 65.3 kg
[~2019-12-14 09:30] MED LIST: ALPR0.5T PO; CEFD300C PO; CIPR500T94 PO; FLUO20CA16 PO; LEVO50TA5 PO; MORP-16 PO; ONDA4TAB12 PO; OXYM30SP25 NS; PANT40TA77 PO; PUMP300C PO
[2019-12-14] MEDS ORDERED: IV NORMAL SALINE 1000ML BAG 1,000 ML IV ONE (09:45)
[2019-12-14] MEDS ORDERED: ONDANSETRON PF 4 MG/2 ML VIAL. IVP ONE (10:15)
[2019-12-14] MEDS ORDERED: MORPHINE SULFATE 4 MG/ML VIAL. IV ONE (10:15)
[2019-12-14 10:30] LABS: BASO # 0.1 x10^3/uL (0.0-0.2); BASO % 1 % (0-3); EOS # 0.2 x10^3/uL (0.0-0.7); EOS % 4 % (0-3); HEMATOCRIT 32.7 % (36.0-47.0); HEMOGLOBIN 10.8 g/dL (12.0-15.5); LYMPH # 1.6 x10^3/uL (1.0-4.8); LYMPH % 28 % (24-48); MEAN CORPUSCULAR HEMOGLOBIN 27 pg (25-35); MEAN CORPUSCULAR HGB CONC 33 g/dL (31-37); MEAN CORPUSCULAR VOLUME 83 fL (79-100); MONO # 0.4 x10^3/uL (0.0-1.1); MONO % 7 % (0-9); NEUT # 3.5 x10^3/uL (1.8-7.7); NEUT % 60 % (31-73); PLATELET COUNT 328 x10^3/uL (140-400); RED BLOOD COUNT 3.96 x10^6/uL (3.50-5.40); WHITE BLOOD COUNT 5.8 x10^3/uL (4.0-11.0)
[2019-12-14 10:36] LABS: BILIRUBIN,URINE NEGATIVE (NEG); CLARITY,URINE CLEAR; COLOR,URINE ORANGE; NITRITE,URINE POSITIVE (NEG); PROTEIN,URINE NEGATIVE (NEG-TRACE)
--- NOTE | 2019-12-14 10:39 | PHYS DOC ---
Past Medical History Past Medical History: Anxiety, GERD, Hypothyroid, Kidney Infection, Migraines Past Surgical History: Other Additional Past Surgical Histo: HERNIA REPAIR,BREAST AUGMENTATION Smoking Status: Never Smoker Alcohol Use: None Drug Use: None General Adult EDM: Chief Complaint: FLANK PAIN HPI: HPI: Patient is a 49-year-old female who presents to the ED with right flank pain. Patient was discharged from hospital on 12/10/2019 after being treated inpatient for fluoroquinolone resistant pyelonephritis. Patient was discharged on cefdinir but she states that she did not fill the medication due to her assumption that it was not IV medication. Patient describes persistent pain on her right flank and right lower back and rates it at a 7 out of 10. Patient states that she has allergies to penicillins and had a abdominal rash during inpatient ceftriaxone infusion which was successfully treated with IV diphenh ydramine. Patient endorses nausea and denies subjective fever, chills, weakness. Patient currently takes oral morphine for baseline pain coverage of her migraines secondary to Chiari I malformation and uses IM Toradol for breakthrough pain. Patient requests ondansetron for nausea. Patient has a past medical history of bladder prolapse and pelvic floor structural weakness. Irasema ent is currently taking Pyridium for bladder pain. Reports difficulty controlling pain despite being on prescription pain medications. Review of Systems: Review of Systems: Constitutional: Denies fever or chills Eyes: Denies redness or eye pain HENT: Denies nasal congestion or sore throat Respiratory: Denies cough or shortness of breath Cardiovascular: Denies chest pain or palpitations GI: Endorses abdominal pain and nausea, denies vomiting : Endorses dysuria; denies hematuria Musculoskeletal: Reports right flank/back pain; denies joint pain Integument: Denies rash or skin lesions Neurologic: Endorses headache; denies focal weakness or sensory changes Complete systems were reviewed and found to be within normal limits, except as documented in this note. Current Medications: Current Medications Medications (Trade) Dose Ordered Sig/Bakari Start Time Stop Time Status Last Admin Dose Admin Morphine Sulfate (Morphine Sulfate) 4 mg 1X ONCE 12/14/19 10:15 12/14/19 10:17 DC Ondansetron HCl (Zofran) 4 mg 1X ONCE 12/14/19 10:15 12/14/19 10:17 DC Sodium Chloride 1,000 ml @ 1,000 mls/hr 1X ONCE 12/14/19 09:45 12/14/19 10:44 Allergies: Allergies: Allergies Coded Allergies Type Severity Reaction Last Updated Verified Penicillins Allergy Intermediate 12/06/19 Yes metoclopramide Allergy Intermediate 12/06/19 Yes prochlorperazine Allergy Intermediate 12/06/19 Yes Physical Exam: PE: Constitutional: Well developed, well nourished, no acute distress, non-toxic appearance HENT: Normocephalic, atraumatic Eyes: Conjunctiva normal, no discharge Neck: Normal range of motion, supple Lungs & Thorax: No respiratory distress, equal chest rise and fall Abdomen: Soft, tender to palpation of right lower quadrant and suprapubic tenderness, midline umbilical hernia repair scar present Skin: Warm, dry, no erythema, no rash Back: Positive for CVA tenderness on the right side, right flank tenderness, no ecchymosis present Extremities: No tenderness, ROM intact, no edema, hips and knees flexed for comfort Neurologic: Alert and oriented X 3, no focal deficits noted Psychologic: Affect normal, judgment normal Current Patient Data: Vital Signs: Vital Signs Date Time Temp Pulse Resp B/P (MAP) Pulse Ox O2 Delivery O2 Flow Rate FiO2 12/14/19 10:02 97.5 66 20 115/71 (86) 96 Room Air 97.5 Course & Med Decision Making: Course & Med Decision Making Pertinent Lab studies reviewed. (See chart for details) Patient is a 49-year-old female presenting with right flank pain. Patient was discharged on 12/10/2019 after inpatient treatment of pyelonephritis. Patient was discharged on cefdinir and states she never filled the medication. Hematology labs shows white blood cell count at 5.8 and a normocytic anemia with a hemoglobin of 10.8. Urinalysis positive for nitrates. Concern for continued E. coli infection. Urine culture reviewed and notes patient sensitive to cephalosporins. Lactic acid within normal limits. IV Rocephin given. Pain addressed. Patient with recent CT imaging without acute process. CT imaging therefore held at this time. Patient reports difficulty controlling pain at home. Patient requesting admission. Patient requiring observation admission for further evaluation and treatment. Discussed with Dr. Tucker (PCP) who is in agreement with admission. Discussed findings and plan with patient, who acknowledges understanding and agreement. Patricia Disclaimer: Patricia Disclaimer: This electronic medical record was generated, in whole or in part, using a voice recognition dictation system. Departure Departure Impression: Primary Impression: Pyelonephritis Additional Impression: Intractable pain Disposition: ADMITTED INPATIENT (Obs) Admitting Physician: Layo Tucker Condition: STABLE Referrals: LAYO TUCKER MD (PCP) Justicifation of Admission Dx: Justifications for Admission: Justification of Admission Dx: Yes Comments: Pyelonephritis, Intractable pain. ROBERTO STREETER DO Dec 14, 2019 10:39
[2019-12-14 10:46] LABS: BACTERIA,URINE FEW /HPF (0-FEW); RBC,URINE 0 /HPF (0-2); SQUAMOUS EPITHELIAL CELL,UR FEW /LPF
[2019-12-14 10:53] LABS: CALCIUM 8.3 mg/dL (8.5-10.1); CREATININE 0.9 mg/dL (0.6-1.0); GFR 67.1
[2019-12-14 10:59] LABS: ALBUMIN 3.5 g/dL (3.4-5.0); ALBUMIN/GLOBULIN RATIO 0.9 (1.0-1.7); MAGNESIUM 2.2 mg/dL (1.8-2.4); TOTAL BILIRUBIN 0.2 mg/dL (0.2-1.0); TOTAL PROTEIN 7.2 g/dL (6.4-8.2)
[2019-12-14] MEDS ORDERED: diphenhydrAMINE 50 MG/ML VIAL IVP ONE (11:00)
[2019-12-14] MEDS ORDERED: cefTRIAXone IV Push 1 GM VIAL. IVP ONE (11:00)
[2019-12-14] MEDS ORDERED: ACETAMINOPHEN 325 MG TABLET. PO PRN (11:45)
[2019-12-14] MEDS ORDERED: ONDANSETRON PF 4 MG/2 ML VIAL. IV PRN (11:45)
[2019-12-14] MEDS: fentaNYL PF VIAL 100 MCG/2 ML VIAL IV PRN ×5 (13:09→22:12)
[2019-12-14 13:20] VITALS: BP 109/61
[2019-12-14 15:00] VITALS: BP 107/66
[2019-12-14] MEDS ORDERED: C.DIFF MED SCREEN BY RX. MC SCH (17:30)
[2019-12-14] MEDS ORDERED: ALPRAZolam 0.5 MG TABLET PO PRN (18:00)
[2019-12-14] MEDS: IV NORMAL SALINE 1000ML BAG 1,000 ML IV SCH (18:22)
[2019-12-14 19:00] VITALS: BP 94/49
[2019-12-14] MEDS: MORPHINE ER 30 MG TABLET.ER PO SCH (20:01)
[2019-12-14] MEDS ORDERED: PUMPKIN SEED EXTRACT PO SCH (21:00)
[2019-12-14] MEDS ORDERED: SOY GERM PO SCH (21:00)
[2019-12-14 23:00] VITALS: BP 98/53
[2019-12-15] MEDS: fentaNYL PF VIAL 100 MCG/2 ML VIAL IV PRN ×9 (00:18→20:30)
[2019-12-15 03:00] VITALS: BP 105/64
[2019-12-15] MEDS: IV NORMAL SALINE 1000ML BAG 1,000 ML IV SCH ×3 (04:37→18:00)
[2019-12-15 07:59] VITALS: BP 114/66
[2019-12-15] MEDS: FLUoxetine HCL 20 MG CAPSULE PO SCH (08:53)
[2019-12-15] MEDS: MORPHINE ER 30 MG TABLET.ER PO SCH ×2 (08:54→20:30)
[2019-12-15] MEDS: LEVOTHYROXINE 50 MCG TABLET PO SCH (08:54)
[2019-12-15] MEDS: PANTOPRAZOLE 40 MG TABLET.DR. PO SCH (08:54)
[2019-12-15] MEDS: OXYMETAZOLINE 0.05% NASAL SPRAY 30ML BOTTLE. NS SCH (08:56)
--- NOTE | 2019-12-15 10:47 | PDOC ---
Provider Note Date of Service: DATE: 12/15/19 TIME: 10:32 Provider Note [id number] Justifications for Admission Other Justification FLORINA STERLING MD Dec 15, 2019 10:47
--- NOTE | 2019-12-15 11:57 | HP ---
ADMIT DATE: 12/15/2019 CHIEF COMPLAINT: Flank pain. HISTORY OF PRESENT ILLNESS: This is a 49-year-old white female who was released from [facility] about 3 days prior to this admission for treatment for pyelonephritis. She was on Rocephin and a prescription for Omnicef was sent, but she did not understand she was supposed to take up the medication and has not been on the antibiotics. The cultures show she was resistant to quinolones, but sensitive to all other antibiotics tested. She came back in because of pain, low-grade fever and general malaise and has received another dose of Rocephin in the ER. PAST MEDICAL HISTORY: Multiple allergies noted, PENICILLIN and COMPAZINE, but she did tolerate Rocephin in the hospital. She takes morphine for chronic nonmalignant pain and other meds as listed. SOCIAL HISTORY: Nonsmoker, nondrinker. I do not know her marital status or work status. FAMILY HISTORY: Unremarkable. REVIEW OF SYSTEMS: No other complaints. OBJECTIVE: ENT: All within normal limits. NECK: No masses, nodes or bruits. LUNGS: Clear. No tachypnea. CARDIOVASCULAR: Regular rate. No murmur. ABDOMEN: Soft and tender in the right lower quadrant and right upper quadrant. BACK: Tender over the right flank. Left side seems to be normal. EXTREMITIES: Unremarkable. Good pedal and radial pulses. ASSESSMENT: Pyelonephritis secondary to Escherichia coli sensitive to cephalosporins, but outpatient failure as she failed to take the medication. PLAN: Continue Rocephin another few days until able to take orally again. Continue same meds otherwise. FLORINA STERLING MD DR: FRANCIS/nida JOB#: [id number] / [id number]
[2019-12-15 11:59] VITALS: BP 103/53
[2019-12-15] MEDS: PHENAZOPYRIDINE 200 MG TABLET. PO PRN ×2 (12:50→20:38)
[2019-12-15] MEDS: cefTRIAXone IV Push 1 GM VIAL. IVP SCH (12:52)
[2019-12-15] MEDS: diphenhydrAMINE 50 MG/ML VIAL IVP PRN (12:56)
[2019-12-15 15:49] VITALS: BP 95/57
[2019-12-15 19:00] VITALS: BP 90/45
[2019-12-15] MEDS: LACTOBACILLUS RHAMNOSUS GG 1 CAPSULE. PO SCH (20:28)
[2019-12-15] MEDS: ONDANSETRON ODT 4 MG TAB.RAPDIS. PO PRN (20:42)
[2019-12-16] VITALS (7 sets, daily range): BP systolic 87–110; BP diastolic 51–67
[2019-12-16] MEDS: fentaNYL PF VIAL 100 MCG/2 ML VIAL IV PRN ×11 (00:02→22:10)
[2019-12-16] MEDS: IV NORMAL SALINE 1000ML BAG 1,000 ML IV SCH ×3 (04:10→15:27)
[2019-12-16] MEDS: OXYMETAZOLINE 0.05% NASAL SPRAY 30ML BOTTLE. NS SCH (09:00)
[2019-12-16] MEDS: PHENAZOPYRIDINE 200 MG TABLET. PO PRN ×3 (09:01→22:08)
[2019-12-16] MEDS: LEVOTHYROXINE 50 MCG TABLET PO SCH (09:01)
[2019-12-16] MEDS: ONDANSETRON ODT 4 MG TAB.RAPDIS. PO PRN (09:01)
[2019-12-16] MEDS: MORPHINE ER 30 MG TABLET.ER PO SCH ×2 (09:01→22:09)
[2019-12-16] MEDS: LACTOBACILLUS RHAMNOSUS GG 1 CAPSULE. PO SCH ×2 (09:01→22:08)
[2019-12-16] MEDS: FLUoxetine HCL 20 MG CAPSULE PO SCH (09:02)
[2019-12-16] MEDS: PANTOPRAZOLE 40 MG TABLET.DR. PO SCH (09:03)
--- NOTE | 2019-12-16 09:24 | PDOC ---
Provider Note Date of Service: DATE: 12/16/19 TIME: 09:11 Provider Note no temp, vss, urine cult neg now as expected- still lots of R cva pain-, and persistant nausea- we discussed how fentanyl or possibly fentanyl could be the problem, as infection has cleared- she will take less of both now, cont rocephin 1 more day then po cefdinir Justifications for Admission Other Justification FLORINA STERLING MD Dec 16, 2019 09:24
[2019-12-16] MEDS: MAGNESIUM HYDROXIDE 2,400 MG/30 ML ORAL.SUSP. PO ONE (10:00)
[2019-12-16] MEDS: cefTRIAXone IV Push 1 GM VIAL. IVP SCH (11:00)
[2019-12-16] MEDS: diphenhydrAMINE 50 MG/ML VIAL IVP PRN (11:00)
[2019-12-17] MEDS: fentaNYL PF VIAL 100 MCG/2 ML VIAL IV PRN ×10 (00:35→23:54)
[2019-12-17 03:17] VITALS: BP 88/41
[2019-12-17] MEDS: IV NORMAL SALINE 1000ML BAG 1,000 ML IV SCH ×3 (05:10→18:00)
[2019-12-17 07:00] VITALS: BP 99/59
[2019-12-17] MEDS: LEVOTHYROXINE 50 MCG TABLET PO SCH (07:55)
[2019-12-17] MEDS: PANTOPRAZOLE 40 MG TABLET.DR. PO SCH (07:55)
[2019-12-17] MEDS: OXYMETAZOLINE 0.05% NASAL SPRAY 30ML BOTTLE. NS SCH (09:00)
[2019-12-17] MEDS: MORPHINE ER 30 MG TABLET.ER PO SCH ×2 (09:27→21:17)
[2019-12-17] MEDS: FLUoxetine HCL 20 MG CAPSULE PO SCH (09:27)
[2019-12-17] MEDS: LACTOBACILLUS RHAMNOSUS GG 1 CAPSULE. PO SCH ×2 (09:27→21:17)
[2019-12-17] MEDS: PHENAZOPYRIDINE 200 MG TABLET. PO PRN ×2 (09:30→21:18)
--- NOTE | 2019-12-17 10:19 | PDOC ---
DATE OF SERVICE: DATE: 12/17/19 TIME: 10:18 GENERAL General: vss and afebrile. awake and alert and still uncomfortable with right cva tenderness. chest clear, heart regular, abdomen benign. transition to po meds with dc tomorrow. VITAL SIGNS/I&O Vital Signs/I&O: Vital Signs Date Time Temp Pulse Resp B/P (MAP) Pulse Ox O2 Delivery O2 Flow Rate FiO2 12/17/19 07:00 98.2 63 16 99/59 (72) 98 Room Air 98.2 I & O 12/16/19 12/16/19 12/17/19 15:00 23:00 07:00 Intake Total 600 ml 300 ml 1000 ml Balance 600 ml 300 ml 1000 ml ALLERGIES Allergies: Allergies Coded Allergies Type Severity Reaction Last Updated Verified Penicillins Allergy Intermediate 12/06/19 Yes metoclopramide Allergy Intermediate 12/06/19 Yes prochlorperazine Allergy Intermediate 12/06/19 Yes Justifications for Admission Other Justification LAYO TUCKER MD Dec 17, 2019 10:19
[2019-12-17 11:00] VITALS: BP 94/49
[2019-12-17] MEDS: CEFDINIR 300 MG CAPSULE PO SCH ×2 (12:15→21:17)
[2019-12-17] MEDS: diphenhydrAMINE 50 MG/ML VIAL IVP PRN (12:18)
[2019-12-17 15:00] VITALS: BP 105/55
[2019-12-17 19:00] VITALS: BP 97/52
[2019-12-17 23:00] VITALS: BP 95/50
[2019-12-18] MEDS: IV NORMAL SALINE 1000ML BAG 1,000 ML IV SCH ×2 (02:00→06:47)
[2019-12-18] MEDS: fentaNYL PF VIAL 100 MCG/2 ML VIAL IV PRN ×6 (02:15→15:01)
[2019-12-18 03:00] VITALS: BP 97/53
[2019-12-18] MEDS ORDERED: LEVOTHYROXINE 50 MCG TABLET PO SCH (05:00)
[2019-12-18] MEDS: diphenhydrAMINE 50 MG/ML VIAL IVP PRN (06:48)
[2019-12-18 07:00] VITALS: BP 130/79
[2019-12-18] MEDS: OXYMETAZOLINE 0.05% NASAL SPRAY 30ML BOTTLE. NS SCH (09:00)
[2019-12-18] MEDS: LACTOBACILLUS RHAMNOSUS GG 1 CAPSULE. PO SCH (10:03)
[2019-12-18] MEDS: PANTOPRAZOLE 40 MG TABLET.DR. PO SCH (10:03)
[2019-12-18] MEDS: FLUoxetine HCL 20 MG CAPSULE PO SCH (10:03)
[2019-12-18] MEDS: MORPHINE ER 30 MG TABLET.ER PO SCH (10:03)
[2019-12-18] MEDS: CEFDINIR 300 MG CAPSULE PO SCH (10:04)
[2019-12-18] MEDS: PHENAZOPYRIDINE 200 MG TABLET. PO PRN (10:05)
--- NOTE | 2019-12-18 10:20 | NUR ---
SW following. Discussed with RN, pt from home. Apparently readmitted because did not coal picker medications after discharge. Discharge order for home with self care. No SW needs.
--- NOTE | 2019-12-18 10:42 | DS ---
DATE OF DISCHARGE: 12/18/2019 PRIMARY DIAGNOSIS: Right pyelonephritis. ADDITIONAL DIAGNOSIS: Severe right flank pain. CHIEF COMPLAINT AND HISTORY OF PRESENT ILLNESS: This 49-year-old white female recently discharged for right pyelonephritis, had been home, was getting worse once again, came to the Emergency Room, had nitrite positive urine, readmitted for IV antibiotics, pain control and had not filled her discharge prescription for antibiotics following the prior hospitalization. SUMMARY OF STAY: The patient was admitted and placed back on Rocephin, pain control gradually improved to the point where it was felt she could be dismissed with outpatient followup and this was accomplished on the day of discharge. DISPOSITION: The patient is discharged to home. DIET: Regular diet. ACTIVITY: As tolerated, office in 2 weeks. DISCHARGE MEDICATIONS: Regular home meds. In addition, she is to take Omnicef 300 b.i.d. for the next 7 days. LAYO TUCKER MD DR: MARY/nida JOB#: [id number] / [id number]
[2019-12-18 11:00] VITALS: BP 118/70
[2019-12-18] MEDS ORDERED: diphenhydrAMINE 50 MG/ML VIAL IVP ONE (13:30)
--- NOTE | 2019-12-18 15:52 | NUR ---
patient had discharge order entered by Dr. Foss early in shift, but was told that she could leave "when she felt ready". pt continued to request fentanyl q2 and called Dr. Foss for additional doses of benadryl. pt told RN that she could get a ride home between [id number] when her got off work. RN called Dr. Foss to inquire if he wanted pt to continue to receive IV fentanyl and orders were to "keep giving it to her until she leaves". pt then stated that her ride would be here between [id number]. when dispatch supervisor questioned why pt was still here, was informed of what Dr. Foss had told patient. RN was asked to discharge pt before 1700. when RN was informing pt of discharge, pt stated "Dr. Foss told me I could stay until midnight so I wouldn't get charged for another day." RN told pt that she had a discharge order in and if she didn't have a ride the hospital would provide her with a cab pass. pt said she would have a ride by 1700 (it was now 1500). RN gave pt dose of IV fentanyl and removed IV. at 1530, pt pressed call light to inform staff that she had a ride and wanted to leave. pt provided with dc paperwork, including instructions for follow up and need to fish bait picker prescribed antibiotic. pt was also advised to seek attention at a hospital that provides urology services if there is an emergency.
== END 2019-12-18 15:45 | disposition home or self-care (01) | DRG 689 ==
LOC: ER 09:30 → 5 NORTH 12:14 → OBSVTOIN 23:10
PROVIDERS: ADMIT Family Medicine; ATTEND Family Medicine
DX: N12 Tubulo-interstitial nephritis, not specified as acute or chronic (principal); G93.5 Compression of brain; Z16.23 Resistance to quinolones and fluoroquinolones; F41.9 Anxiety disorder, unspecified; G89.29 Other chronic pain; K21.9 Gastro-esophageal reflux disease without esophagitis; E03.9 Hypothyroidism, unspecified; G43.909 Migraine, unspecified, not intractable, without status migrainosus; B96.20 Unspecified Escherichia coli [E. coli] as the cause of diseases classified elsewhere; Z88.0 Allergy status to penicillin; Z88.8 Allergy status to other drugs, medicaments and biological substances
CPT/HCPCS: 36415; 80053; 81001; 83605; 83690; 83735; 85025; 87086; 96361; 96374; 96375; 99285; G0378; G0379; J0696; J1200; J2270; J2405; J3010; J7030

== ENCOUNTER → 2020-10-08 | Outpatient (CLI) | payer OTHER ==
--- NOTE | 2020-10-08 08:15 | RAD ---
EXAM: Neck sonogram. HISTORY: Lymphadenopathy. TECHNIQUE: Sonographic imaging of the neck was performed. COMPARISON: None. FINDINGS: There are enlarged bilateral cervical chain lymph nodes which demonstrate thickened cortice s, largest of which on the right measures 2.3 x 1.2 x 0.7 cm and the largest of which on the left kemi sures 1.5 x 1.0 x 0.5 cm. IMPRESSION: Enlarged bilateral cervical chain lymph nodes with thickened cortices. Correlate for poss ible reactive etiologies. Short-term sonographic or CT follow-up can be performed if there is concern for underlying neoplasm. Electronically signed by: Sophia Palma MD (10/08/2020 8:13 AM) [id number]
--- NOTE | 2020-10-08 08:18 | RAD ---
STUDY: US BILATERAL LOWEREXTREMITY VENOUS DOPPLER INDICATION: Reason: b/l edema / Spl. Instructions: / History: TECHNIQUE: Color-flow and pulsed wave duplex ultrasound with compression of venous structures of the bilateral lower extremities. COMPARISON: None Available. FINDINGS: Duplex ultrasound with compression of the deep venous structures of the bilateral lower extremities f rom the common femoral vein through the popliteal vein is negative for DVT. The posterior tibial and peroneal veins are segmentally visualized and patent where seen. Normal veno us waveforms and augmentation are noted throughout. Incidental note of a prominent right inguinal lymph node measuring 2.4 cm long by 1.6 cm short axis. IMPRESSION: No deep venous thrombosis of the bilateral lower extremities. Electronically signed by: Sreekanth Mills MD (10/08/2020 8:15 AM) [id number]
== END ==
LOC: US 07:25
PROVIDERS: ATTEND Family Medicine
DX: I87.1 Compression of vein (principal); R59.9 Enlarged lymph nodes, unspecified
CPT/HCPCS: 76536; 93970

== ENCOUNTER 2020-11-10 17:59 | Emergency (ER) | payer OTHER | END 2020-11-10 19:00 | disposition left against medical advice (07) | LOC: ER 17:59 | DX: R60.0 Localized edema (principal); Z53.21 Procedure and treatment not carried out due to patient leaving prior to being seen by health care provider ==

== ENCOUNTER 2020-11-10 17:59 | Emergency (ER) | payer OTHER ==
[~2020-11-10] VITALS: Ht 175.3 cm; Wt 74.1 kg
[2020-11-10 22:10] LABS: BASO # 0.1 x10^3/uL (0.0-0.2); BASO % 1 % (0-3); BILIRUBIN,URINE NEGATIVE (NEG); CLARITY,URINE CLEAR; COLOR,URINE YELLOW; EOS # 0.2 x10^3/uL (0.0-0.7); EOS % 3 % (0-3); HEMATOCRIT 34.6 % (36.0-47.0); HEMOGLOBIN 11.3 g/dL (12.0-15.5); LYMPH # 2.6 x10^3/uL (1.0-4.8); LYMPH % 33 % (24-48); MEAN CORPUSCULAR HEMOGLOBIN 25 pg (25-35); MEAN CORPUSCULAR HGB CONC 33 g/dL (31-37); MEAN CORPUSCULAR VOLUME 77 fL (79-100); MONO # 0.6 x10^3/uL (0.0-1.1); MONO % 7 % (0-9); NEUT # 4.3 x10^3/uL (1.8-7.7); NEUT % 56 % (31-73); NITRITE,URINE NEGATIVE (NEG); PH,URINE 6.5 (<5.0-8.0); PLATELET COUNT 426 x10^3/uL (140-400); PROTEIN,URINE NEGATIVE (NEG-TRACE); RED BLOOD COUNT 4.46 x10^6/uL (3.50-5.40); RED CELL DISTRIBUTION WIDTH 18.1 % (11.5-14.5); UROBILINOGEN,URINE 0.2 mg/dL (0.2 mg/dL); WHITE BLOOD COUNT 7.8 x10^3/uL (4.0-11.0)
[2020-11-10 22:17] LABS: CALCIUM 9.2 mg/dL (8.5-10.1); CREATININE 0.6 mg/dL (0.6-1.0); GFR 106.7; POTASSIUM 3.8 mmol/L (3.5-5.1)
[2020-11-10 22:21] LABS: BACTERIA,URINE FEW /HPF (0-FEW); RBC,URINE 0 /HPF (0-2)
[2020-11-10 22:22] LABS: ALBUMIN 3.6 g/dL (3.4-5.0); TOTAL BILIRUBIN 0.1 mg/dL (0.2-1.0); TOTAL PROTEIN 7.3 g/dL (6.4-8.2)
[2020-11-10 22:25] VITALS: BP 152/91
--- NOTE | 2020-11-10 22:52 | PHYS DOC ---
Past Medical History Past Medical History: Anxiety, GERD, Hypothyroid, Kidney Infection, Migraines Additional Past Medical Histor: anemia, BLE edema, Past Surgical History: Other Additional Past Surgical Histo: HERNIA REPAIR,BREAST AUGMENTATION Smoking Status: Never Smoker Alcohol Use: Rarely Drug Use: None General Adult EDM: Chief Complaint: MULTIPLE COMPLAINTS HPI: HPI: Patient is a 50 year old female with a history of hypothyroidism, kidney infec tion, anxiety, migraine headaches, who presents to the ED today stating she is here to be admitted by Dr. Tucker. She is in the Ed with a bag of clothes ready for admission. Patient states she has had multiple medical problems that have been going on for months. She states Dr. Tucker plus other specialist have been working her up and they cannot find any acute cause for her symptoms. She states her symptoms include chronic bilateral lower extremity edema, anemia, generalized weakness, back pain, abdominal pain, bloody stools. Patient also reports chronic fevers. She states all her lymph nodes throughout her body is swollen, she states they have done ultrasound of them and they could not find any cause for the swelling. Patient is very elaborate about eachsymptom. Review of Systems: Review of Systems: Constitutional: Reports chronic fever. Denies fever or chills. [] Eyes: Denies change in visual acuity. [] HENT: Denies nasal congestion or sore throat. [] Respiratory: Denies cough or shortness of breath. [] Cardiovascular: Denies chest pain or edema. [] GI: Reports chronic abdominal pain, chronic bloody stools, denies nausea, vomiting, bloody stools or diarrhea. [] : Denies dysuria. [] Musculoskeletal: Reports chronic low back pain Integument: Denies rash. [] Neurologic: Denies headache, focal weakness or sensory changes. [] Psychiatric: Denies depression or anxiety. [] Heart Score: C/O Chest Pain: N/A Risk Factors: Risk Factors: DM, Current or recent (<one month) smoker, HTN, HLP, family history of CAD, obesity. Risk Scores: Score 0 - 3: 2.5% MACE over next 6 weeks - Discharge Home Score 4 - 6: 20.3% MACE over next 6 weeks - Admit for Clinical Observation Score 7 - 10: 72.7% MACE over next 6 weeks - Early Invasive Strategies Allergies: Allergies: Allergies Coded Allergies Type Severity Reaction Last Updated Verified Penicillins Allergy Intermediate 12/06/19 Yes metoclopramide Allergy Intermediate 12/06/19 Yes prochlorperazine Allergy Intermediate 12/06/19 Yes Physical Exam: PE: Constitutional: Well developed, well nourished, no acute distress, non-toxic appearance. [] HENT: Normocephalic, atraumatic, bilateral external ears normal, oropharynx moist, no oral exudates, nose normal. [] Palpable anterior cervical lymphadenopathy and clavicle lymphadenopathy Eyes: PERRLA, EOMI, conjunctiva normal, no discharge. [] Neck: Normal range of motion, no tenderness, supple, no stridor. [] Cardiovascular:Heart rate regular rhythm, no murmur [] Lungs & Thorax: Bilateral breath sounds clear to auscultation [] Abdomen: Bowel sounds normal, soft, no tenderness, no masses, no pulsatile masses. [] Skin: Warm, dry, no erythema, no rash. [] Back: No tenderness, no CVA tenderness. [] Extremities: No tenderness, no cyanosis, no clubbing, ROM intact, no edema. [] Neurologic: Alert and oriented X 3, normal motor function, normal sensory function, no focal deficits noted. [] Psychologic: Affect normal, judgement normal, mood normal. [] Current Patient Data: Labs: Laboratory Tests Test 11/10/20 21:00 White Blood Count 7.8 x10^3/uL (4.0-11.0) Red Blood Count 4.46 x10^6/uL (3.50-5.40) Hemoglobin 11.3 g/dL (12.0-15.5) L Hematocrit 34.6 % (36.0-47.0) L Mean Corpuscular Volume 77 fL (79-100) L Mean Corpuscular Hemoglobin 25 pg (25-35) Mean Corpuscular Hemoglobin Concent 33 g/dL (31-37) Red Cell Distribution Width 18.1 % (11.5-14.5) H Platelet Count 426 x10^3/uL (140-400) H Neutrophils (%) (Auto) 56 % (31-73) Lymphocytes (%) (Auto) 33 % (24-48) Monocytes (%) (Auto) 7 % (0-9) Eosinophils (%) (Auto) 3 % (0-3) Basophils (%) (Auto) 1 % (0-3) Neutrophils # (Auto) 4.3 x10^3/uL (1.8-7.7) Lymphocytes # (Auto) 2.6 x10^3/uL (1.0-4.8) Monocytes # (Auto) 0.6 x10^3/uL (0.0-1.1) Eosinophils # (Auto) 0.2 x10^3/uL (0.0-0.7) Basophils # (Auto) 0.1 x10^3/uL (0.0-0.2) Urine Collection Type Unknown Urine Color Yellow Urine Clarity Clear Urine pH 6.5 (<5.0-8.0) Urine Specific Foss <=1.005 (1.000-1.030) Urine Protein Negative mg/dL (NEG-TRACE) Urine Glucose (UA) Negative mg/dL (NEG) Urine Ketones (Stick) Negative mg/dL (NEG) Urine Blood Trace (NEG) Urine Nitrite Negative (NEG) Urine Bilirubin Negative (NEG) Urine Urobilinogen Dipstick 0.2 mg/dL (0.2 mg/dL) Urine Leukocyte Esterase Negative (NEG) Urine RBC 0 /HPF (0-2) Urine WBC 1-4 /HPF (0-4) Urine Squamous Epithelial Cells Few /LPF Urine Bacteria Few /HPF (0-FEW) Sodium Level 136 mmol/L (136-145) Potassium Level 3.8 mmol/L (3.5-5.1) Chloride Level 97 mmol/L (98-107) L Carbon Dioxide Level 30 mmol/L (21-32) Anion Gap 9 (6-14) Blood Urea Nitrogen 14 mg/dL (7-20) Creatinine 0.6 mg/dL (0.6-1.0) Estimated GFR (Cockcroft-Gault) 106.7 BUN/Creatinine Ratio 23 (6-20) H Glucose Level 84 mg/dL (70-99) Calcium Level 9.2 mg/dL (8.5-10.1) Total Bilirubin 0.1 mg/dL (0.2-1.0) L Aspartate Amino Transferase (AST) 23 U/L (15-37) Alanine Aminotransferase (ALT) 24 U/L (14-59) Alkaline Phosphatase 91 U/L (46-116) VO-[id number]-Type Natriuretic Peptide 90 pg/mL (0-124) Total Protein 7.3 g/dL (6.4-8.2) Albumin 3.6 g/dL (3.4-5.0) Albumin/Globulin Ratio 1.0 (1.0-1.7) Laboratory Tests 11/10/20 21:00 Laboratory Tests 11/10/20 21:00 Vital Signs: Vital Signs Date Time Temp Pulse Resp B/P (MAP) Pulse Ox O2 Delivery O2 Flow Rate FiO2 11/10/20 20:30 99.1 96 18 149/87 (86) 97 Room Air 99.1 EKG: EKG: [] Radiology/Procedures: Radiology/Procedures: [] Course & Med Decision Making: Course & Med Decision Making Pertinent Labs and Imaging studies reviewed. (See chart for details) This is a 50-year-old female patient presented to the ED today with multiple complaints. See HPI. Initially she stated she is here to be admitted. I contacted the PCP who stated patient was sent to the ED for work-up. Patient's work-up in the emergency room is negative for any acute findings including CBC with hgb 11.3, HCT34.6 which is higher than last time it was done last year, CMP, chest x-ray, UA with no acute findings I sat with patient and had a very long conversation. Patient is worried she has non-Hodgkin's lymphoma. She is also worried she has some GI bleed. She was hoping to be admitted today so she can be seen by a GI doctor and have a colonoscopy as well as be seen by legal service specialist/oncologist. Informed patient I do not have any good reason to keep her in the hospital. Recommended following up as an outpatient Patricia Disclaimer: Patricia Disclaimer: This electronic medical record was generated, in whole or in part, using a voice recognition dictation system. Departure Departure Impression: Primary Impression: Fever Qualified Codes: R50.9 - Fever, unspecified Additional Impressions: Anemia Qualified Codes: D64.9 - Anemia, unspecified Edema Qualified Codes: R60.9 - Edema, unspecified Weakness Disposition: HOME / SELF CARE / HOMELESS Condition: STABLE Referrals: LAOY TUCKER MD (PCP) follow up as soon as you can Patient Instructions: Anemia, FAQs, Weakness, [id number] Additional Instructions: Please follow-up with your primary care doctor, GI doctor and IMPLEMENTATION ARCHITECT as soon as possible GERRY MALDONADO APRN Nov 10, 2020 22:52
--- NOTE | 2020-11-10 23:13 | RAD ---
XR CHEST 1V History: Reason: fever / Spl. Instructions: / History: Comparison: None. Findings: No consolidation or pleural effusion. Normal heart size. No pneumothorax. Impression: 1. No acute cardiopulmonary process. Electronically signed by: Tino Cole DO (11/10/2020 11:11 PM) [facility] [place]
== END 2020-11-11 00:25 | disposition home or self-care (01) ==
LOC: ER 17:59
DX: D64.9 Anemia, unspecified (principal); R60.9 Edema, unspecified; R53.1 Weakness; R50.9 Fever, unspecified; R59.0 Localized enlarged lymph nodes; K21.9 Gastro-esophageal reflux disease without esophagitis; E03.9 Hypothyroidism, unspecified; G43.909 Migraine, unspecified, not intractable, without status migrainosus; F41.9 Anxiety disorder, unspecified; Z88.0 Allergy status to penicillin; Z88.1 Allergy status to other antibiotic agents
CPT/HCPCS: 36415; 71045; 80053; 81001; 83880; 85025; 99284

== ENCOUNTER → 2020-11-10 20:08 | Emergency (ER) | payer OTHER | END | disposition home or self-care (01) | LOC: ER 20:08 | DX: N81.10 Cystocele, unspecified (principal); Z53.21 Procedure and treatment not carried out due to patient leaving prior to being seen by health care provider ==

== ENCOUNTER → 2020-12-01 | Outpatient (CLI) | payer OTHER ==
--- NOTE | 2020-12-01 08:42 | RAD ---
EXAM: Pelvic sonogram. HISTORY: Menorrhagia. TECHNIQUE: Transabdominal and transvaginal sonographic imaging of the pelvis was performed. COMPARISON: None. FINDINGS: The uterus measures 8.4 x 5.8 x 4.2 cm. The endometrial stripe measures 5 mm in thickness. There is a 2.5 cm fibroid within the anterior superior uterine fundus. The ovaries are normal in size and demonstrate normal blood flow. There is a 2.1 cm complex right ovarian cyst, likely hemorrhagic in etiology. There is also a 2.9 cm complex left ovarian cyst with suspected internal debris. There i s a 1.2 cm simple right ovarian follicle. There is no pelvic free fluid. IMPRESSION: 1. 2.5 cm uterine fibroid. 2. Normal endometrial stripe thickness. 3. 2.1 cm suspected hemorrhagic right ovarian cyst. There is also a 1.2 cm simple right ovarian folli krista. 4. 2.9 cm complicated left ovarian cyst with suspected internal debris. Sonographic follow-up can be performed in 2-3 months to confirm resolution of aforementioned complica fabien cysts. Electronically signed by: Sophia Palma MD (12/01/2020 8:40 AM) [id number]
== END ==
LOC: US 07:06
PROVIDERS: ATTEND Family Medicine
DX: N83.01 Follicular cyst of right ovary (principal); N83.202 Unspecified ovarian cyst, left side; D25.9 Leiomyoma of uterus, unspecified; N92.0 Excessive and frequent menstruation with regular cycle
CPT/HCPCS: 76830; 76856

== ENCOUNTER 2021-08-31 18:18 | Emergency (ER) | payer OTHER ==
[~2021-08-31] VITALS: Ht 170.2 cm; Wt 90.7 kg
[2021-08-31 19:12] LABS: BASO # 0.1 x10^3/uL (0.0-0.2); BASO % 1 % (0-3); EOS % 15 % (0-3); HEMATOCRIT 35.2 % (36.0-47.0); HEMOGLOBIN 11.7 g/dL (12.0-15.5); LYMPH # 1.6 x10^3/uL (1.0-4.8); LYMPH % 24 % (24-48); MEAN CORPUSCULAR HEMOGLOBIN 27 pg (25-35); MEAN CORPUSCULAR HGB CONC 33 g/dL (31-37); MEAN CORPUSCULAR VOLUME 82 fL (79-100); MONO # 0.5 x10^3/uL (0.0-1.1); MONO % 7 % (0-9); NEUT # 3.5 x10^3/uL (1.8-7.7); NEUT % 53 % (31-73); PLATELET COUNT 366 x10^3/uL (140-400); RED CELL DISTRIBUTION WIDTH 15.4 % (11.5-14.5); WHITE BLOOD COUNT 6.6 x10^3/uL (4.0-11.0)
[2021-08-31 19:20] LABS: PROTHROMBIN TIME PATIENT 12.2 SEC (11.7-14.0)
[2021-08-31 19:25] LABS: CALCIUM 8.6 mg/dL (8.5-10.1); CREATININE 0.9 mg/dL (0.6-1.0); GFR 66.5; POTASSIUM 3.6 mmol/L (3.5-5.1)
[2021-08-31 19:32] LABS: ALBUMIN 3.2 g/dL (3.4-5.0); MAGNESIUM 2.2 mg/dL (1.8-2.4); TOTAL BILIRUBIN 0.2 mg/dL (0.2-1.0); TOTAL PROTEIN 6.4 g/dL (6.4-8.2)
[2021-08-31 19:35] LABS: BACTERIA,URINE 0 /HPF (0-FEW); WBC,URINE 0 /HPF (0-4)
[2021-08-31 19:40] VITALS: BP 117/72
[2021-08-31 19:42] LABS: FREE T4 0.81 ng/dL (0.76-1.46); THYROID STIM HORMONE (TSH) 2.896 uIU/mL (0.358-3.74)
--- NOTE | 2021-08-31 19:54 | RAD ---
EXAM: XR CHEST 1V 08/31/2021 7:07 PM CLINICAL INDICATION: Edema COMPARISON: Chest radiograph 11/10/2020 TECHNIQUE: AP upright view of the chest FINDINGS: The heart is normal in size. Lungs are adequately expanded. No consolidation, pleural effu maria a, or pneumothorax. No acute osseous abnormality. IMPRESSION: No acute cardiopulmonary abnormality. Electronically signed by: Stephanie Weiss MD (08/31/2021 7:51 PM) [facility]
[2021-08-31] MEDS ORDERED: MORPHINE SULFATE 4 MG/ML INJ. ONE (20:16)
--- NOTE | 2021-08-31 20:21 | RAD ---
Exam: CT of chest, abdomen and pelvis without contrast INDICATION: Lymphoma, mass, diffuse edema TECHNIQUE: Sequential axial images through the chest, abdomen and pelvis obtained without IV contrast . Sagittal and coronal reformatted images were reconstructed from the axial data and reviewed. Exposure: One or more of the following in the visualized dose reduction techniques were utilized for this examination: 1. Automated exposure control 2. Adjustment of the MA and/or KV according to patient size 3. Use of iterative of reconstructive technique Comparisons: None FINDINGS: Visualized portions of the thyroid are unremarkable. No enlarged mediastinal lymph nodes are identifi ed. Heart size is normal. No pericardial effusion. Thoracic aorta has normal course and caliber. Pulmonar y artery is not enlarged. Airways are patent. No consolidation or pneumothorax. No suspicious lung nodules. No pleural effusion or thickening. Liver, spleen, pancreas, gallbladder and adrenals are unremarkable. No perinephric inflammation or hydronephrosis. No renal or ureteral calculi are identified. Bladder is partially distended and not well evaluated. Uterus is not enlarged. No abnormal adnexal ma ss. Moderate amount of stool noted in the colon. Appendix is normal. No free intra-abdominal air fluid. N o obstruction. Abdominal aorta has normal course and caliber. Abdominal vasculature is patent. No enlarged intra-abdominal lymph nodes are identified. No suspicious osseous lesions or acute fractures. IMPRESSION: No abnormal lymphadenopathy identified. No acute process identified within the chest, abdomen or pelv is Electronically signed by: Sienna Montelongo MD (08/31/2021 8:18 PM) [facility]
[2021-08-31] MEDS ORDERED: MORPHINE SULFATE 4 MG/ML INJ. IVP ONE (20:45)
--- NOTE | 2021-08-31 20:45 | RAD ---
EXAMINATION: US BILATERAL LOWEREXTREMITY VENOUS DOPPLER (LOWER EXTREMITY VENOUS ULTRASOUND) CLINICAL HISTORY: Bilateral lower extremity edema and erythema. TECHNIQUE: Sonographic grayscale images obtained of the bilateral lower extremity deep venous systems with color flow Doppler, compression, and augmentation techniques as indicated. Images obtained and stored in a permanent archive. COMPARISON: None FINDINGS: RIGHT: No evidence of absent flow or incompressibility within the common femoral vein, femoral vein, or popl iteal vein. Visualized calf veins appear patent on limited evaluation. Subcutaneous edema. Prominent inguinal lymph node with preserved fatty hilum and reniform shape. LEFT: No evidence of absent flow or incompressibility within the common femoral vein, femoral vein, or popl iteal vein. Visualized calf veins appear patent on limited evaluation. Subcutaneous edema. IMPRESSION: No evidence of bilateral lower extremity DVT. Electronically signed by: Jn Brasher DO (08/31/2021 8:43 PM) [facility]
[2021-08-31] MEDS ORDERED: LACT1CAP37 PO (22:03)
--- NOTE | 2021-09-01 01:33 | PHYS DOC ---
Past Medical History Past Medical History: Anxiety, GERD, Hypothyroid, Kidney Infection, Migraines Additional Past Medical Histor: anemia, BLE edema, Past Surgical History: Other Additional Past Surgical Histo: HERNIA REPAIR,BREAST AUGMENTATION Smoking Status: Never Smoker Alcohol Use: None Drug Use: None General Adult EDM: Chief Complaint: CHEST PAIN HPI: HPI: 51-year-old female, past medical history anemia, endometriosis, hypothyroid, hernia repair, breast augmentation, presents with 1 year of intermittent bilateral lower extremity edema (acutely worsened over last month and now causing pain bc so swollen and also swelling in abdomen, gained 20 lbs) and various complaints such as increased hair loss, sinusitis, GI distress with intermittent constipation and diarrhea. Patient states she has been on a course of Flagyl, antibiotics for questionable cellulitis? and abx for cough as well? Off and on prednisone bursts. Patient extremely anxious about right cervical lymph node that has been there for the past year and paranoid that she may have cancer. Patient states her PMD knows about her BLE edema and told her to take a lasix every now and then. Patient paranoid that she may have an undiagnosed autoimmune disorder. Also had f/u with gastroenterology scheduled for her irregular BM's but never got colonoscopy bc she didn't do the bowel prep. Patient states she also has been severely anxious and depressed this past year due to her mother's and follow-up with her family. Review of Systems: Review of Systems: Constitutional: Denies fever or chills. [] Eyes: Denies change in visual acuity. [] HENT: Denies nasal congestion or sore throat. [] Respiratory: Denies cough or shortness of breath. [] Cardiovascular: Denies chest pain, +edema. [] GI: Denies abdominal pain, nausea, vomiting, bloody stools or diarrhea. [] : Denies dysuria. [] Musculoskeletal: Denies back pain or joint pain. [] Integument: Denies rash. [] Neurologic: Denies headache, focal weakness or sensory changes. [] Endocrine: Denies polyuria or polydipsia. [] Lymphatic: Denies swollen glands. [] Psychiatric: + depression or anxiety. [] Heart Score: C/O Chest Pain: No Risk Factors: Risk Factors: DM, Current or recent (<one month) smoker, HTN, HLP, family history of CAD, obesity. Risk Scores: Score 0 - 3: 2.5% MACE over next 6 weeks - Discharge Home Score 4 - 6: 20.3% MACE over next 6 weeks - Admit for Clinical Observation Score 7 - 10: 72.7% MACE over next 6 weeks - Early Invasive Strategies Current Medications: Current Medications Medications (Trade) Dose Ordered Sig/Bakari Start Time Stop Time Status Last Admin Dose Admin Morphine Sulfate (Morphine Sulfate) 4 mg STK-MED ONCE 08/31/21 20:16 08/31/21 20:17 DC Allergies: Allergies: Allergies Coded Allergies Type Severity Reaction Last Updated Verified Penicillins Allergy Intermediate hives 08/31/21 Yes metoclopramide Adverse Reaction Intermediate "feels crazy" 08/31/21 Yes prochlorperazine Adverse Reaction Intermediate "feel crazy" 08/31/21 Yes Physical Exam: PE: Constitutional: Well developed, well nourished, no acute distress, non-toxic appearance. [] HENT: Normocephalic, atraumatic, bilateral external ears normal, oropharynx moist, no oral exudates, nose normal. [] Eyes: PERRLA, EOMI, conjunctiva normal, no discharge. [] Neck: Normal range of motion, no tenderness, supple, no stridor. [] Cardiovascular:Heart rate regular rhythm, no murmur [] Lungs & Thorax: Bilateral breath sounds clear to auscultation [] Abdomen: Bowel sounds normal, soft, no tenderness, no masses, no pulsatile masses. [] Skin: Warm, dry, no erythema, no rash. [] Back: No tenderness, no CVA tenderness. [] Extremities: No tenderness, no cyanosis, no clubbing, ROM intact, no edema. [] Neurologic: Alert and oriented X 3, normal motor function, normal sensory function, no focal deficits noted. [] Psychologic: Affect normal, judgement normal, mood normal. [] Current Patient Data: Labs: Laboratory Tests Test 08/31/21 18:48 08/31/21 18:50 08/31/21 19:00 POC Urine HCG, Qualitative Hcg negative (Negative) White Blood Count 6.6 x10^3/uL (4.0-11.0) Red Blood Count 4.30 x10^6/uL (3.50-5.40) Hemoglobin 11.7 g/dL (12.0-15.5) L Hematocrit 35.2 % (36.0-47.0) L Mean Corpuscular Volume 82 fL (79-100) Mean Corpuscular Hemoglobin 27 pg (25-35) Mean Corpuscular Hemoglobin Concent 33 g/dL (31-37) Red Cell Distribution Width 15.4 % (11.5-14.5) H Platelet Count 366 x10^3/uL (140-400) Neutrophils (%) (Auto) 53 % (31-73) Lymphocytes (%) (Auto) 24 % (24-48) Monocytes (%) (Auto) 7 % (0-9) Eosinophils (%) (Auto) 15 % (0-3) H Basophils (%) (Auto) 1 % (0-3) Neutrophils # (Auto) 3.5 x10^3/uL (1.8-7.7) Lymphocytes # (Auto) 1.6 x10^3/uL (1.0-4.8) Monocytes # (Auto) 0.5 x10^3/uL (0.0-1.1) Eosinophils # (Auto) 1.0 x10^3/uL (0.0-0.7) H Basophils # (Auto) 0.1 x10^3/uL (0.0-0.2) Prothrombin Time 12.2 SEC (11.7-14.0) Prothrombin Time INR 0.9 (0.8-1.1) Sodium Level 140 mmol/L (136-145) Potassium Level 3.6 mmol/L (3.5-5.1) Chloride Level 101 mmol/L (98-107) Carbon Dioxide Level 30 mmol/L (21-32) Anion Gap 9 (6-14) Blood Urea Nitrogen 12 mg/dL (7-20) Creatinine 0.9 mg/dL (0.6-1.0) Estimated GFR (Cockcroft-Gault) 66.5 BUN/Creatinine Ratio 13 (6-20) Glucose Level 101 mg/dL (70-99) H Calcium Level 8.6 mg/dL (8.5-10.1) Magnesium Level 2.2 mg/dL (1.8-2.4) Total Bilirubin 0.2 mg/dL (0.2-1.0) Aspartate Amino Transferase (AST) 38 U/L (15-37) H Alanine Aminotransferase (ALT) 50 U/L (14-59) Alkaline Phosphatase 78 U/L (46-116) Troponin I High Sensitivity 5 ng/L (4-50) NJ-Lhf-N-Type Natriuretic Peptide 29 pg/mL (0-124) Total Protein 6.4 g/dL (6.4-8.2) Albumin 3.2 g/dL (3.4-5.0) L Albumin/Globulin Ratio 1.0 (1.0-1.7) Lipase 37 U/L (73-393) L Thyroid Stimulating Hormone (TSH) 2.896 uIU/mL (0.358-3.74) Free Thyroxine 0.81 ng/dL (0.76-1.46) Free Triiodothyronine (T3) pg/mL 2.35 pg/mL (2.18-3.98) Urine Collection Type Unknown Urine Color (Auto) Light yellow Urine Turbidity Clear Urine pH (Auto) 6.0 (<5.0-8.0) Urine Specific Almo 1.012 (1.000-1.030) Urine Protein (Auto) Negative mg/dL (Negative) Urine Glucose (Auto)(UA) Negative mg/dL (Negative) Urine Ketones (Auto) Negative mg/dL (Negative) Urine Blood (Auto) Negative (Negative) Urine Nitrite Negative (Negative) Urine Bilirubin (Auto) Negative (Negative) Urine Urobilinogen (Auto) Normal mg/dL (Normal) Urine Leukocyte Esterase (Auto) Negative (Negative) Urine RBC 11-20 /HPF (0-2) Urine WBC 0 /HPF (0-4) Urine Squamous Epithelial Cells Mod /LPF Urine Bacteria 0 /HPF (0-FEW) Laboratory Tests 08/31/21 18:50 Laboratory Tests 08/31/21 18:50 Vital Signs: Vital Signs Date Time Temp Pulse Resp B/P (MAP) Pulse Ox O2 Delivery O2 Flow Rate FiO2 08/31/21 20:19 22 100 Room Air 08/31/21 19:40 87 117/72 (87) 08/31/21 18:31 98.4 98.4 EKG: EKG: [] Radiology/Procedures: Radiology/Procedures: [] Course & Med Decision Making: Course & Med Decision Making Pertinent Labs and Imaging studies reviewed. (See chart for details) Additional Social History: PMD from non-affiliated facility. Patient Lives at home. Family History: Non-pertinent to today's complaint. Nursing Notes Reviewed Previous Medical Records requested via [facility] Web: Reviewed by me. EMERGENT LABS AND DIAGNOSTIC STUDIES: Results were reviewed and interpreted by me as below CBC: Shows no evidence of leukocytosis or anemia. Platelet count is normal Chemistry: Shows no electrolyte abnormalities Otherwise within normal limits, unremarkable or as noted above. 12-lead EKG Interpretation by Felipe Mercado MD: Normal Sinus Rhythm at 97 beats per minute Normal axis Normal intervals No ectopy No PVC No other acute ST or T wave abnormalities Overall impression is normal EKG PROCEDURE: CT CHEST ABDOMEN PELVIS WO IMPRESSION: No abnormal lymphadenopathy identified. No acute process identified within the chest, abdomen or pelvis PROCEDURE: VENOUS LOWER EXT BILATERAL IMPRESSION: No evidence of bilateral lower extremity DVT. PROCEDURE: PORTABLE CHEST 1V ION: No acute cardiopulmonary abnormality. EMERGENCY DEPARTMENT COURSE/ MEDICAL DECISION MAKING: The patient was placed on a associate web developer, continuous pulse oximetry and was given supplemental oxygen. I examined the patient, evaluated and addressed patient's chief complaint. 51 yo F with CC BLE edema worsened acutely over last month but intermittent for 1 yr. Multiple courses of abx and prednisone but patient not able to tell me what exactly her doctors were treating, cellulitis? pneumonia? sinusitis? No hx of cardiac or pulmonary disease. Patient fixated on small, nontender R cervical lymph node and worried she may have cancer. r/o CHF, renal disease, liver disease, mass/obstructive process, DVT, metabolic derangements; very low suspicious for cellulitis. CT C/A/P and venous duplex negative. Labs largely unremarkable. EKG and chest xray unremarkable. Lymphedema possibly secondary to prednisone bursts and rebound. The patient was treated with morphine. Only mildly hypoalbuminonemic, low suspicion that this is the sole cause of her BLE edema. No acute life threatening/reversal causes of her edema. Recommended discontinuing habit of taking abx and prednisone for no known reason as this is likely causing her GI distress and bloating. Suspicious for hypochondriac tendencies. Given deprsesion and Anxiety, recommened sleep hygiene, eating well, and decreasing stress. Stable for dc home with routine pmd f/u. On re-assessment, patient feels much better. The patient understands that todays Emergency Department evaluation does not represent a comprehensive medical workup, and it is impossible to diagnose all possible illnesses from a single Emergency Department visit. The patient verbalized understanding that it is absolutely necessary to have follow-up with regular primary care physician within 1-2 days for more detailed workup and continued exam. I explained the findings and plan to the patient, who expressed verbal understanding and agreed with plan for discharge and follow up. The patient was given after care instructions and welcomed to return to the ED for re-evaluation in 8-12 hours, especially for any new or worsening symptoms. Patient's blood pressure was elevated (>120/80) but appears stable without evidence of end organ damage, malignant hypertension, hypertensive emergency or urgency. The patient was counseled about the risks of hypertension and urged to pursue outpatient monitoring and therapy within a week with their primary care physician. The patient was stable at the time of discharge. DIAGNOSTIC IMPRESSION: 1. BLE edema DISPOSITION: Disposition: Discharge Home. Condition: Improved Follow-Up: PMD Prescriptions: None Return to the Emergency Department for new or worsening symptoms. Patricia Disclaimer: Patricia Disclaimer: This electronic medical record was generated, in whole or in part, using a voice recognition dictation system. Departure Departure Impression: Primary Impression: Bloating Additional Impression: Leg edema Disposition: HOME / SELF CARE / HOMELESS Condition: STABLE Patient Instructions: Edema Additional Instructions: Please follow up with your primary care provider. Scripts Lactobacillus Combo No.10 (PROBIOTIC) 1 Each Capsule 1 TAB PO DAILY for 30 Days, #30 TAB 3 Refills Prov: MASON MERCADO MD 08/31/21 MASON MERCADO MD September 01, 2021 01:33
--- NOTE | 2021-09-01 04:01 | EKG ---
[facility] [address] [place] [address] Test Date: 2021-08-31 Test Time: 18:35:41 Pat Name: MELINA THAKKAR Department: Room: Gender: F [employer] In[employer]: : [id number] Requested By: MASON GAONA Order Number: [id number] Reading MD: Alejandro Damon MD Measurements Intervals [place] Rate: 97 P: 54 HI: 148 QRS: 72 QRSD: 102 T: 37 QT: 372 QTc: 477 Interpretive Statements SINUS RHYTHM Electronically Signed On 09-01-2021 8:59:22 CDT by Alejandro Damon MD
== END 2021-08-31 22:10 | disposition home or self-care (01) ==
LOC: ER 18:18
DX: R60.0 Localized edema (principal); R14.0 Abdominal distension (gaseous); K21.9 Gastro-esophageal reflux disease without esophagitis; E03.9 Hypothyroidism, unspecified; G43.909 Migraine, unspecified, not intractable, without status migrainosus; Z98.890 Other specified postprocedural states; Z88.0 Allergy status to penicillin; Z88.1 Allergy status to other antibiotic agents; Z88.8 Allergy status to other drugs, medicaments and biological substances
CPT/HCPCS: 36415; 71045; 71250; 74176; 80053; 81001; 81025; 83690; 83735; 83880; 84439; 84443; 84481; 84484; 85025; 85610; 93005; 93970; 96374; 99285; J2270